=== PATIENT | female | born 1965 | race Caucasian/White ===

== ENCOUNTER → 2022-01-10 08:19 | Outpatient (BNVA) | payer OTHER, SELFPAY | PROVIDERS: PCP Internal Medicine; Visit Provider Surgery | DX: E66.01 Morbid (severe) obesity due to excess calories (principal); J45.909 Unspecified asthma, uncomplicated; I10 Essential (primary) hypertension | CPT/HCPCS: 99202 ==

== ENCOUNTER → 2022-01-29 15:00 | Outpatient (BNVA) | payer OTHER, SELFPAY | PROVIDERS: PCP Internal Medicine; Visit Provider Counselor Mental Health | DX: F33.0 Major depressive disorder, recurrent, mild (principal); E66.01 Morbid (severe) obesity due to excess calories | CPT/HCPCS: 90791 ==

== ENCOUNTER → 2022-02-11 08:12 | Outpatient (BNVA) | payer OTHER, SELFPAY | PROVIDERS: PCP Internal Medicine; Visit Provider Dietitian, Registered | DX: Z13.89 Encounter for screening for other disorder (principal) ==

== ENCOUNTER → 2022-02-12 08:10 | Outpatient (BNVA) | payer OTHER, SELFPAY | PROVIDERS: PCP Internal Medicine; Visit Provider Dietitian, Registered | DX: E66.01 Morbid (severe) obesity due to excess calories (principal); Z68.43 Body mass index [BMI] 50.0-59.9, adult | CPT/HCPCS: 97802 ==

== ENCOUNTER 2022-02-13 08:37 | Outpatient (REF) | payer OTHER, SELFPAY ==
--- NOTE | ~2022-02-13 | XR_ITS ---
EXAMINATION: XR CHEST CLINICAL INFORMATION: Morbid obesity COMPARISON: None TECHNIQUE: 2 views of the chest were obtained. FINDINGS: Cardiac silhouette is normal in size. The lungs are well aerated. There is no lobar consolidation. No pleural effusion or pneumothorax. Mild to moderate degenerative changes of the spine. XR/XR chest 2V IMPRESSION: No acute pulmonary pathology.
--- NOTE | 2022-02-13 08:55 | ECG_ITS ---
Test Reason : e66.01 Blood Pressure : / mmHG Vent. Rate : 068 BPM Atrial Rate : 068 BPM P-R Int : 144 ms QRS Dur : 088 ms QT Int : 376 ms P-R-T Axes : 056 035 034 degrees QTc Int : 399 ms Sinus rhythm with occasional Premature ventricular complexes Otherwise normal ECG No previous ECGs available Referred By: Tone Cancino Electronically Signed By:TIAGO PRATER MD
[2022-02-13 09:10] LABS: MANUAL DIFF FLAG NO
[2022-02-13 09:56] LABS: Basophils Percent Auto 0.2 % (0-2); Eosinophils Absolute Auto 0.1 X10*3/uL (0.0-0.4); Eosinophils Percent Auto 1.4 % (0-4); Hematocrit 45.4 % (37.0-47.0); Hemoglobin 14.7 g/dl (12.0-16.0); Imm Gran Abs Auto 0.01 X10*3/uL (0.00-0.03); Imm Gran Pct Auto 0.2 % (0.0-0.4); Mean Corpuscular HGB Conc 32.4 g/dl (31.0-35.0); Mean Corpuscular Hemoglobin 27.7 pg (27.0-33.0); Mean Corpuscular Volume 85.7 fL (80.0-98.0); Mean Platelet Volume 10.7 fL (9.4-12.3); Monocytes Absolute Auto 0.4 X10*3/uL (0.1-1.2); Monocytes Percent Auto 7.3 % (2-11); Neutrophils Absolute Auto 3.2 x10*3/uL (2.0-8.3); Neutrophils Percent Auto 55.9 % (45-73); Platelet Count 266 X10*3/uL (160-400); Red Cell Distribution Width 14.6 % (11.0-16.0); White Blood Count 5.7 X10*3/uL (4.8-10.8)
[2022-02-13 10:05] LABS: Estimated Average Glucose 108 mg/dL; Hemoglobin A1c % 5.4 %
[2022-02-13 10:28] LABS: Alanine Aminotransferase 22 U/L (0-31); Albumin Level 4.2 g/dL (3.5-5.0); Alkaline Phosphatase 115 U/L (39-117); Anion Gap 13 (12-20); Aspartate Amino Transferase 17 U/L (5-31); Bilirubin Total 0.4 mg/dL (0.0-1.0); Blood Urea Nitrogen 16 mg/dL (9-16); C Reactive Protein 1.72 mg/dL (< or = 0.50); Calcium 9.9 mg/dL (8.4-10.2); Carbon Dioxide 25 mmol/L (22-29); Chloride 105 mmol/L (96-108); Cholesterol 256 mg/dL; Estimated Glomerular Filt Rate > 60; Glucose Random 93 mg/dL (60-115); HDL Cholesterol 65 mg/dL; Iron 79 mcg/dL (30-160); LDL Cholesterol Calculated 174 mg/dl; Percent Iron Saturation 19 % (15-50); Potassium 4.6 mmol/L (3.3-5.1); Sodium 138 mmol/L (135-145); Total Iron Binding Capacity 406 mcg/dL (228-428); Total Protein 7.8 g/dL (6.5-8.0); Triglycerides 89 mg/dL; Unsaturated Iron Binding 327 ug/dL
[2022-02-13 10:36] LABS: Ferritin 165 ng/mL (10-250); TSH reflex Free T4 1.21 uIU/mL (0.32-4.0); Vitamin D 25-OH Total 46.8 ng/mL (>30)
[2022-02-13 11:07] LABS: Folate 19.1 ng/mL (> or = 4.0); Vitamin B12 763 pg/mL (200-900)
[2022-02-13 11:13] LABS: Insulin 13 uU/mL (2-29)
[2022-02-14 13:41] LABS: Calcium (PTHI) 9.9 mg/dL (8.6-10.4); PTHI 95 pg/mL (16-77)
[2022-02-15 13:54] LABS: H Pylori Breath Test Negative (Negative)
[2022-02-17 19:56] LABS: Zinc 65 mcg/dL (60-130)
[2022-02-19 13:00] LABS: Vitamin A 49 mcg/dL (38-98)
[2022-02-19 14:35] LABS: Vitamin B1 16 nmol/L (8-30)
== END 2022-02-13 08:38 | disposition home or self-care (01) ==
LOC: HO.LAB 08:37
PROVIDERS: PCP Internal Medicine; Visit Provider Surgery
DX: Z01.812 Encounter for preprocedural laboratory examination (principal); E66.01 Morbid (severe) obesity due to excess calories; I10 Essential (primary) hypertension; I49.3 Ventricular premature depolarization; J45.909 Unspecified asthma, uncomplicated
CPT/HCPCS: 36415; 71046; 80053; 80061; 82306; 82607; 82728; 82746; 83013; 83036; 83525; 83540; 83970; 84425; 84443; 84590; 84630; 85025; 86140; 93005; 99211

== ENCOUNTER → 2022-03-07 16:00 | Outpatient (BNVA) | payer OTHER, SELFPAY | PROVIDERS: PCP Internal Medicine; Visit Provider Physician Assistant | DX: E66.01 Morbid (severe) obesity due to excess calories (principal) | CPT/HCPCS: Q3014 ==

== ENCOUNTER → 2022-03-17 13:43 | Outpatient (BNVA) | payer OTHER, SELFPAY | PROVIDERS: PCP Internal Medicine; Referring Provider Surgery; Visit Provider Dietitian, Registered | DX: E66.01 Morbid (severe) obesity due to excess calories (principal); Z68.43 Body mass index [BMI] 50.0-59.9, adult | CPT/HCPCS: 97803 ==

== ENCOUNTER → 2022-06-04 14:19 | Outpatient (BNVA) | payer OTHER, SELFPAY | PROVIDERS: Visit Provider Physician Assistant | DX: E66.01 Morbid (severe) obesity due to excess calories (principal); Z71.3 Dietary counseling and surveillance; Z79.899 Other long term (current) drug therapy; Z68.43 Body mass index [BMI] 50.0-59.9, adult | CPT/HCPCS: 99212 ==

== ENCOUNTER → 2022-06-24 15:53 | Outpatient (BNVA) | payer OTHER, SELFPAY | PROVIDERS: Visit Provider Dietitian, Registered | DX: E66.01 Morbid (severe) obesity due to excess calories (principal); Z68.43 Body mass index [BMI] 50.0-59.9, adult; Z71.3 Dietary counseling and surveillance | CPT/HCPCS: 97803 ==

== ENCOUNTER → 2022-06-25 15:32 | Outpatient (BNVA) | payer OTHER, SELFPAY | PROVIDERS: Visit Provider Physician Assistant | DX: E66.01 Morbid (severe) obesity due to excess calories (principal); M79.7 Fibromyalgia; Z68.43 Body mass index [BMI] 50.0-59.9, adult | CPT/HCPCS: Q3014 ==

== ENCOUNTER 2022-07-07 08:49 | Outpatient (REF) | payer OTHER, SELFPAY ==
--- NOTE | ~2022-07-07 | FL_ITS ---
PROCEDURE: XR FLUOROSCOPY UPPER GI WITH AIR CLINICAL INFORMATION: Morbid to severe obesity due to excess calories. COMPARISON: None TECHNIQUE: Routine upper GI air-contrast study was performed. FINDINGS: Following oral administration of thick barium and effervescent granules in upright view there is normal propagation of bolus from the oral cavity through the pharynx, esophagus into stomach without any evidence of obstruction, narrowing or stricture. The course, caliber and peristalsis of the stomach and the duodenum is normal. The mucosal pattern of the stomach and duodenum is normal. FLUOROSCOPY TIME: 1.5 minutes DOSE AREA PRODUCT: 43.105 uGy-m2 (microgray-meter squared) FL/FL upper GI w air IMPRESSION: Unremarkable upper GI exam.
--- NOTE | ~2022-07-07 | US_ITS ---
EXAMINATION: US COMPLETE ABDOMEN WITH LIVER ELASTOGRAPHY CLINICAL INFORMATION: Rqhmop-[id number] obesity due to excess calories. COMPARISON: None. TECHNIQUE: Real-time imaging of the abdominal viscera. Noninvasive ultrasound liver fibrosis assessment is performed using Mikie ElastPQ point quantification shear wave elastography (2D-SWE) with a C5-2 MHz transducer. Multiple elastography samples are obtained. FINDINGS: PANCREAS: Normal. The visualized pancreatic head and body are normal in appearance. The remainder of the pancreas is obscured from visualization by the overlying bowel gas. ABDOMINAL AORTA: The proximal and distal aortic segments are normal in caliber. The mid abdominal segment is not visualized. INFERIOR VENA CAVA: Visualized portions are normal. LIVER: The liver demonstrates normal size, contour and minimal increased echogenicity. No focal lesion or intrahepatic biliary duct dilatation. The right lobe measures 14.3 cm in length. The left lobe measures 11.0 cm in length. Portal flow is hepatopedal. The middle portal vein appears slightly prominent but patent Shear wave liver elastography median stiffness is 2.07 m/s (reference: normal median stiffness is 1.3 m/s or less). IQR/median stiffness to assess sampling precision is 0.29 (reference: good quality data set is IQR/median stiffness of 0.15 or less). GALLBLADDER: Gallbladder wall thickness is 0.4 cm The gallbladder is physiologically distended without evidence of stones, sludge, polyps or pericholecystic fluid. COMMON BILE DUCT: Normal in caliber measuring 0.4 cm in diameter. RIGHT KIDNEY: Normal. No hydronephrosis. No renal calculi or focal parenchymal lesions. The kidney measures 12.3 cm in maximum dimension. LEFT KIDNEY: Normal. No hydronephrosis. No renal calculi or focal parenchymal lesions. The kidney measures 11.5 cm in maximum dimension. SPLEEN: Normal. The spleen measures 9.3 cm in maximum dimension. FREE FLUID: None. US/US abdomen comp w elastography IMPRESSION: 1. Mild hepatic steatosis without focal lesion. 2. Mild gallbladder wall thickening measuring 0.4 cm but no echogenic stones. 3. Liver elastography: Median liver stiffness measures 2.07 m/s corresponding to cACLD (ruled in). REFERENCE: Society of Radiologists in Ultrasound Liver Stiffness Thresholds (2020): LIVER STIFFNESS THRESHOLDS: *Liver Stiffness equal or less than 1.3 m/s: High probability of being normal. *Liver Stiffness less than 1.7 m/s: In the absence of other known clinical signs, rules out compensated advanced chronic liver disease. *Liver Stiffness 1.7-2.1 m/s: Suggestive of compensated advanced chronic liver disease but need further test for confirmation. *Liver Stiffness over 2.1 m/s: Rules in compensated advanced chronic liver disease. *Liver Stiffness over 2.4 m/s: Suggestive of clinically significant portal hypertension. QUALITY OF DATA SET: *IQR/Median value equal or less than 0.15 implies a quality data set. *IQR/Median value over 0.15 implies a poor quality data set. SIGNIFICANT CHANGE FROM PRIOR EXAM: Significant change if liver stiffness measurement is 10% or greater from prior exam. OTHER CONSIDERATIONS: The stage of liver fibrosis may be overestimated in the setting of acute hepatitis, liver inflammation, elevated liver function tests, hepatic vascular congestion, obstructive cholestasis, non-fasting state, and infiltrative diseases such as amyloidosis and lymphoma. In some patients with NAFLD, the liver stiffness thresholds for compensated advanced chronic liver disease may be lower. In causes other than viral hepatitis and NAFLD, liver stiffness thresholds are not well established.
== END 2022-07-07 08:50 | disposition home or self-care (01) ==
LOC: HO.US 08:49
PROVIDERS: Visit Provider Physician Assistant
DX: E66.01 Morbid (severe) obesity due to excess calories (principal); J45.909 Unspecified asthma, uncomplicated; I10 Essential (primary) hypertension
CPT/HCPCS: 74246; 76705; 76981

== ENCOUNTER → 2022-07-17 15:00 | Outpatient (BNVA) | payer OTHER, SELFPAY | PROVIDERS: Visit Provider Physician Assistant | DX: E66.01 Morbid (severe) obesity due to excess calories (principal); M79.7 Fibromyalgia | CPT/HCPCS: Q3014 ==

== ENCOUNTER → 2022-07-30 14:41 | Outpatient (BNVA) | payer OTHER, SELFPAY | PROVIDERS: Visit Provider Dietitian, Registered | DX: E66.01 Morbid (severe) obesity due to excess calories (principal); Z71.3 Dietary counseling and surveillance | CPT/HCPCS: 97803 ==

== ENCOUNTER → 2022-08-06 09:30 | Outpatient (BNVA) | payer OTHER, SELFPAY | PROVIDERS: Visit Provider Physician Assistant | DX: E66.01 Morbid (severe) obesity due to excess calories (principal); F41.9 Anxiety disorder, unspecified; M79.7 Fibromyalgia; Z68.42 Body mass index [BMI] 45.0-49.9, adult | CPT/HCPCS: Q3014 ==

== ENCOUNTER → 2022-08-27 14:30 | Outpatient (BNVA) | payer OTHER, SELFPAY | PROVIDERS: Visit Provider Physician Assistant | DX: E66.01 Morbid (severe) obesity due to excess calories (principal); Z68.42 Body mass index [BMI] 45.0-49.9, adult; F41.9 Anxiety disorder, unspecified; F32.A Depression, unspecified; M79.7 Fibromyalgia; I10 Essential (primary) hypertension; J45.909 Unspecified asthma, uncomplicated | CPT/HCPCS: Q3014 ==

== ENCOUNTER → 2022-09-17 16:30 | Outpatient (BNVA) | payer OTHER, SELFPAY | PROVIDERS: Visit Provider Physician Assistant | DX: E66.01 Morbid (severe) obesity due to excess calories (principal); M79.7 Fibromyalgia; J45.909 Unspecified asthma, uncomplicated; I10 Essential (primary) hypertension; Z68.42 Body mass index [BMI] 45.0-49.9, adult | CPT/HCPCS: Q3014 ==

== ENCOUNTER → 2022-09-22 08:16 | Outpatient (BNVA) | payer OTHER, SELFPAY | PROVIDERS: Visit Provider Surgery | DX: E66.01 Morbid (severe) obesity due to excess calories (principal); Z68.42 Body mass index [BMI] 45.0-49.9, adult | CPT/HCPCS: Q3014 ==

== ENCOUNTER 2022-10-09 06:21 | Inpatient (IN) | payer OTHER, SELFPAY ==
[2022-10-02 15:10] VITALS: BMI 47.9
[2022-10-03 14:13] LABS: MANUAL DIFF FLAG NO
[2022-10-03 14:24] LABS: Basophils Percent Auto 0.6 % (0-2); Eosinophils Absolute Auto 0.1 X10*3/uL (0.0-0.4); Eosinophils Percent Auto 1.7 % (0-4); Hematocrit 44.5 % (37.0-47.0); Hemoglobin 14.5 g/dl (12.0-16.0); Imm Gran Abs Auto 0.01 X10*3/uL (0.00-0.03); Imm Gran Pct Auto 0.2 % (0.0-0.4); Lymphocytes Absolute Auto 1.4 X10*3/uL (1.2-4.9); Lymphocytes Percent Auto 30.5 % (20-40); Mean Corpuscular HGB Conc 32.6 g/dl (31.0-35.0); Mean Corpuscular Hemoglobin 28.2 pg (27.0-33.0); Mean Corpuscular Volume 86.6 fL (80.0-98.0); Monocytes Absolute Auto 0.4 X10*3/uL (0.1-1.2); Monocytes Percent Auto 7.8 % (2-11); Neutrophils Absolute Auto 2.8 x10*3/uL (2.0-8.3); Neutrophils Percent Auto 59.2 % (45-73); Platelet Count 236 X10*3/uL (160-400); Red Blood Count 5.14 X10*6/uL (4.20-5.50); Red Cell Distribution Width 13.7 % (11.0-16.0); White Blood Count 4.7 X10*3/uL (4.8-10.8)
[2022-10-03 14:30] LABS: Prothrombin Time 11.1 SEC (10.0-13.1)
[2022-10-03 14:33] LABS: Partial Thromboplastin Time 29.8 SEC (26.0-36.4)
[2022-10-03 14:52] LABS: Estimated Average Glucose 97 mg/dL
[2022-10-03 14:54] LABS: Alanine Aminotransferase 17 U/L (0-31); Alkaline Phosphatase 103 U/L (39-117); Anion Gap 11 (12-20); Aspartate Amino Transferase 16 U/L (5-31); Bilirubin Total 0.6 mg/dL (0.0-1.0); Blood Urea Nitrogen 14 mg/dL (9-16); C Reactive Protein 1.08 mg/dL (< or = 0.50); Calcium 9.5 mg/dL (8.4-10.2); Carbon Dioxide 30 mmol/L (22-29); Chloride 105 mmol/L (96-108); Cholesterol 238 mg/dL; Creatinine Clr Calc Pharmacy 123.3; Estimated Glomerular Filt Rate > 60; Glucose Random 88 mg/dL (60-115); HDL Cholesterol 54 mg/dL; LDL Cholesterol Calculated 168 mg/dl; Potassium 4.7 mmol/L (3.3-5.1); Sodium 141 mmol/L (135-145); Total Protein 6.9 g/dL (6.5-8.0); Triglycerides 84 mg/dL
[2022-10-03 15:12] LABS: Insulin 8 uU/mL (2-29); TSH reflex Free T4 1.17 uIU/mL (0.32-4.0)
--- NOTE | 2022-10-03 23:51 | MHC.SHP ---
Pre-Procedural Eval Section A Date of Service: 10/03/22 The patient is an INPATIENT: Yes The History & Physical has been completed within 30 days and I have reviewed it.: Yes Section B Chief Complaint: obesity Relevant Family History (Specify if Yes): No Relevant Social History: None Present Medications: None Medical History: No relevant PMH History of Previous Operations: No relevant previous surgery Allergies: Allergies Allergy/AdvReac Type Severity Reaction Status Date / Time No Known Allergies Allergy Verified 09/22/22 11:54 Review of Systems Sugical H&P ROS: Negative: Constitution, Cardiovascular, Respiratory, Neurological, Psychiatric, Hem-Onc, Allergic/Immunologic, Gastrointestinal, Genitourinary, Musculoskeletal, Integumentary, Endocrine and Eyes/Ears/Nose/Throat Exam Surgical H&P Exam: Normal: HEENT, Normal: Heart, Normal: Lungs, Normal: Extremities, Normal: Abdomen, Normal: Skin and Normal: Neurological Plan Diagnosis/Plan: Unchanged I have reviewed the history and physical and performed a pertinent physical examination on my patient. No changes have occurred unless specified. Time Spent With Patient Time: Total time managing care of this patient today ____ minutes.
--- NOTE | 2022-10-08 09:50 | HO.ANESPROP2 ---
Documented by User: Elsy Booth NP 10/08/22 09:55 HPI - Anesthesia Eval Consult details Narrative: 57yo F for Gastrectomy Sleeve,EGD,poss diaphragmatic hernia,poss ventral hernia,poss open, PMFSH Active Problems Active Problems: All Active Problems (Updated 10/02/22 @ 15:10 by Angela Del Valle RN) Major depressive disorder, recurrent, mild (Acute) Fibromyalgia (Acute) DJD (degenerative joint disease) (Acute) Hypertension (Acute) Anxiety (Acute) Depression (Acute) Asthma (Acute) Morbid obesity (Acute) Past Medical History Medical History Anxiety Arthritis Asthma Depression DJD (degenerative joint disease) Hypertension Morbid obesity Family History Family History Mother No problems noted. Father No problems noted. Sister No problems noted. Sister No problems noted. Sister No problems noted. Sister No problems noted. Sister Asthma Son No problems noted. Son No problems noted. Son No problems noted. Son No problems noted. Surgical History Surgical History Hx of tubal ligation Social History Social History Housing Other:: mobile home Are you a primary career services coordinator to a significant other at home: No Do you presently have visiting nurse or other home services: Yes ([employer]) Alcohol intake: never Patient Tobacco Use Status: Never used Tobacco Use of substances other than those prescribed or required for medical reasons: No Have you been hit, kicked, punched, or otherwise hurt by someone within the past year? If so, by whom?: No Are you DNR?: No Advance Directives: No Advance Directives Information Provided: Yes (brochure mailed) Advance Directives on File: No Recently lost weight without trying: No Eating poorly because of decreased appetite: No Nutrition Risks: No Nutritional Risk Patient : No FDLMP: N/A Poor oral hygiene: No (2 broken teeth upper) Meds Allergies Allergy/AdvReac Type Severity Reaction Status Date / Time No Known Allergies Allergy Verified 10/09/22 06:43 Home Medications Medication Instructions Recorded Confirmed Last Taken Type albuterol sulfate 2.5 mg/3 mL 2.5 mg inhalation Q4H PRN Wheezing 01/10/22 10/09/22 10/02/22 History (0.083 %) solution for nebulization albuterol sulfate 90 mcg/actuation 2 puff inhalation Q4H PRN Wheezing 01/10/22 10/09/22 10/07/22 History aerosol inhaler amlodipine 10 mg tablet 10 mg PO DAILY 01/10/22 10/09/22 10/09/22 04:30 History losartan 25 mg tablet 25 mg PO DAILY 06/25/22 10/09/22 10/08/22 History duloxetine 30 mg capsule,delayed 30 mg PO TID 09/17/22 10/09/22 10/06/22 History release tramadol 50 mg tablet 50 mg PO DAILY PRN Pain 09/17/22 10/09/22 10/02/22 History pregabalin 75 mg capsule 75 mg PO BID 09/22/22 10/09/22 10/06/22 History Exam Exam Date and Time: October 08, 2022 0950 Height,Weight and Vital Signs: Height 5 ft 8 in Weight 142.882 kg Pertinent Lab Results Pertinent Lab Results: Laboratory Tests 10/03/22 10/03/22 10/03/22 14:00 14:11 14:11 WBC 4.7 L RBC 5.14 Hgb 14.5 Hct 44.5 MCV 86.6 MCH 28.2 MCHC 32.6 RDW 13.7 Plt Count 236 MPV 11.0 Immature Gran % (Auto) 0.2 Neut % (Auto) 59.2 Lymph % (Auto) 30.5 Moca % (Auto) 7.8 Eos % (Auto) 1.7 Baso % (Auto) 0.6 Lymph # (Auto) 1.4 Moca # (Auto) 0.4 Eos # (Auto) 0.1 Baso # (Auto) 0.0 Abs Immat Gran (auto) 0.01 Absolute Neuts (auto) 2.8 Absolute Nucleated RBC 0.000 Nucleated RBC % (auto) 0.0 PT 11.1 INR 1.0 APTT 29.8 Sodium Potassium Chloride Carbon Dioxide Anion Gap BUN Creatinine Estim Creat Clear Calc Estimated GFR Random Glucose Estimat Average Glucose Hemoglobin A1c % Insulin Level Calcium Total Bilirubin AST ALT Alkaline Phosphatase C-Reactive Protein Total Protein Albumin Triglycerides Cholesterol LDL Cholesterol, Calc HDL Cholesterol TSH Blood Type O Positive Antibody Screen NEGATIVE 10/03/22 10/03/22 14:11 14:11 WBC RBC Hgb Hct MCV MCH MCHC RDW Plt Count MPV Immature Gran % (Auto) Neut % (Auto) Lymph % (Auto) Moca % (Auto) Eos % (Auto) Baso % (Auto) Lymph # (Auto) Moca # (Auto) Eos # (Auto) Baso # (Auto) Abs Immat Gran (auto) Absolute Neuts (auto) Absolute Nucleated RBC Nucleated RBC % (auto) PT INR APTT Sodium 141 Potassium 4.7 Chloride 105 Carbon Dioxide 30 H Anion Gap 11 L BUN 14 Creatinine 0.75 Estim Creat Clear Calc 123.3 Estimated GFR > 60 Random Glucose 88 Estimat Average Glucose 97 Hemoglobin A1c % 5.0 Insulin Level 8 Calcium 9.5 Total Bilirubin 0.6 AST 16 ALT 17 Alkaline Phosphatase 103 C-Reactive Protein 1.08 H Total Protein 6.9 Albumin 4.0 Triglycerides 84 Cholesterol 238 LDL Cholesterol, Calc 168 HDL Cholesterol 54 TSH 1.17 Blood Type Antibody Screen Narrative Narrative: EKG 02/2022 Vent. Rate : 068 BPM ? ? Atrial Rate : 068 BPM ?? P-R Int : 144 ms? QRS Dur : 088 ms ? ? QT Int : 376 ms ? ? ? P-R-T Axes : 056 035 034 degrees ?? QTc Int : 399 ms ? Sinus rhythm with occasional Premature ventricular complexes Otherwise normal ECG No previous ECGs available Assessment and Plan Assessment Anesthesia Assessment: Chart Reviewed Documented by User: Susan Levine MD 10/09/22 07:22 [facility] Past Medical History Medical History Anxiety Arthritis Asthma Depression DJD (degenerative joint disease) Hypertension Morbid obesity Functional capacity: independent ambulation Patient : No Family History Family History Mother No problems noted. Father No problems noted. Sister No problems noted. Sister No problems noted. Sister No problems noted. Sister No problems noted. Sister Asthma Son No problems noted. Son No problems noted. Son No problems noted. Son No problems noted. Family history of problems with anesthesia: No Surgical History Surgical History Hx of tubal ligation History of Problems with Anesthesia: No Social History Social History Housing Other:: mobile home Are you a primary career services coordinator to a significant other at home: No Do you presently have visiting nurse or other home services: Yes ([employer]) Alcohol intake: never Patient Tobacco Use Status: Never used Tobacco Use of substances other than those prescribed or required for medical reasons: No Have you been hit, kicked, punched, or otherwise hurt by someone within the past year? If so, by whom?: No Are you DNR?: No Advance Directives: No Advance Directives Information Provided: Yes (brochure mailed) Advance Directives on File: No Recently lost weight without trying: No Eating poorly because of decreased appetite: No Nutrition Risks: No Nutritional Risk Patient : No FDLMP: N/A Poor oral hygiene: No (2 broken teeth upper) Meds Allergies Allergy/AdvReac Type Severity Reaction Status Date / Time No Known Allergies Allergy Verified 10/09/22 06:43 Home Medications Medication Instructions Recorded Confirmed Last Taken Type albuterol sulfate 2.5 mg/3 mL 2.5 mg inhalation Q4H PRN Wheezing 01/10/22 10/09/22 10/02/22 History (0.083 %) solution for nebulization albuterol sulfate 90 mcg/actuation 2 puff inhalation Q4H PRN Wheezing 01/10/22 10/09/22 10/07/22 History aerosol inhaler amlodipine 10 mg tablet 10 mg PO DAILY 01/10/22 10/09/22 10/09/22 04:30 History losartan 25 mg tablet 25 mg PO DAILY 06/25/22 10/09/22 10/08/22 History duloxetine 30 mg capsule,delayed 30 mg PO TID 09/17/22 10/09/2210/06/23 History release tramadol 50 mg tablet 50 mg PO DAILY PRN Pain 09/17/22 10/09/22 10/02/22 History pregabalin 75 mg capsule 75 mg PO BID 09/22/22 10/09/22 10/06/22 History Exam Airway Mallampati Class: II TM Dist: >3cm Neck ROM: Full Heart: RRR Lungs: CTA Assessment and Plan Final Anesthetic Review Family History of Problems with Anesthesia: No History of Problems with Anesthesia: No ASA Class: III Final Preanesthetic Review: No Changes in Pt Med Stat, Meds/Allgs Chart Reviewed, Consent Obtained/Reviewed and Anes Risks/Benef Reviewed Patient Risk: Intermediate Procedure Risk: Intermediate Anesthetic Plan Anesthetic Plan: GA Disposition: Standard PACU
[2022-10-08 15:22] LABS: COVID-19 Test Negative (Negative); IDNOW Serial# 16C4AD1C
[2022-10-09] VITALS (17 sets, daily range): BP systolic 130–169; BP diastolic 66–88; PULSE 69–91; RESP 16–21; TEMP 36.3–37.3; O2SAT 95–100
--- OUTSIDE RECORDS SUMMARY | 2022-10-09 06:23 | XMS_ITS | Continuity of Care Document ---
:1965 Author Organization [facility] Address [address] [place] [id number]- Care Team Providers Name Role Phone Ana Funk MD Primary Care Physician Encounter [facility] [place] Date(s): 03/26/22 - 06/26/22 [facility] [address] [place] [id number] [[email or web address]] Attending Physician: Hebert Guzman DO Admitting Physician: Hebert Guzman DO Referring Physician: Ana Funk MD Allergies, Adverse Reactions, Alerts No Known Allergies Immunizations Given and Recorded Vaccine Date Status Refusal Reason SARS-CoV-2 mRNA ([id number]) vax 06/04/22 Given influenza virus vaccine, inactivated 11/21/21 Given influenza virus vaccine, inactivated 06/30/19 Given influenza virus vaccine, inactivated 11/12/18 Given influenza virus vaccine, inactivated1 07/24/17 Given influenza virus vaccine, inactivated2 07/24/16 Given influenza virus vaccine, inactivated 10/12/15 Recorded influenza virus vaccine, inactivated 10/16/09 Recorded tetanus/diphtheria/pertussis, acel(Tdap) 11/08/13 Recorde d Hepatitis B Vaccine (old term) 08/11/07 Given Hepatitis B Vaccine (old term) 12/16/06 Given Hepatitis B Vaccine (old term) 11/11/06 Given Hepatitis A Vaccine (oldterm) 08/11/07 Given Hepatitis A Vaccine (oldterm) 11/11/06 Given 1Result Comment: [07/24/2017] [facility]# [id number] Comment: [07/24/2016] [facility] Medications albuterol 0.083% inhalation solution See Instructions, USE 1 VIAL VIA NEBULIZER EVERY 4-6 HOURS NEEDED FOR WHEEZING, # 100 each, 6 Refills, Maintenance, 11/21/21 10:47:00 EST, [facility] #[id number], 170, cm, 11/21/21 10:08:00 EST, Height Start Date: 11/21/21 Status: OrderedamLODIPine 10 mg oral tablet 1 tablet, By Mouth, Daily, # 30 tablet, 2 Refills, Maintenance, 06/06/22 7:21:00 EDT, [facility] #[id number], 170, cm, 06/04/22 9:54:00 EDT, Height Start Date: 06/06/22 Status: Orderedduloxetine 30 mg oral enteric coated capsule 3 capsule = 90 mg, By Mouth, Daily, # 90 capsule, 3 Refills, Maintenance, 02/17/22 9:23:00 EDT, EC Capsule, [facility] #[id number], Partial fill upon patient request if the prescription is for a schedule II opioid drug., 170, cm, 02/17/22 9:22:00... Start Date: 02/17/22 Stop Date: 06/17/22 Status: Orderedlosartan 25 mg oral tablet 25 mg, 1, tablet, By Mouth, Daily, # 30 tablet, Refills 4, Tot. Refills 4, Maintenance, 02/17/22 9:21:00 EDT, Route to Pharmacy Electronically, [facility] #[id number], Partial fill upon patient request if the prescription is for a schedule II opi... Start Date: 02/17/22 Stop Date: 07/17/22 Status: OrderedLyrica 75 mg oral capsule 1 capsule = 75 mg, By Mouth, 2 times a day, # 60 capsule, 5 Refills, Maintenance, 11/21/21 12:33:00 EST, Capsule, [facility] #[id number], 170, cm, 11/21/21 10:08:00 EST, Height Start Date: 11/21/21 Stop Date: 05/20/22 Status: OrderedNebulizer/Compressor See Instructions, # 1 each, Refills 0, Tot. Refills 0, Maintenance, Nebulizer supplies, 12/27/18 17:57:00 EDT, Compound Start Date: 12/27/18 Status: OrderedProAir HFA 90 mcg/inh inhalation aerosol with adapter 2, puffs, Inhalation, Every 6 hours, NO ADDTIONAL REFILLS UNTIL SEEN BY PCP- PLEASE SCHEDULE APPT., # 1 each, Refills 6, Tot. Refills 6, Maintenance, 11/21/21 10:47:00 EST, Inhaler, Route to Pharmacy Electronically, [id number]... Start Date: 11/21/21 Stop Date: 06/19/22 Status: Ordered Problem List Condition Effective Dates Status Health Status Informant Asthma(Confirmed) Active Bipolar disorder(Confirmed) Active Obesity, Class III, BMI 40-49.9 Active (morbid obesity)(Confirmed) Chronic pain syndrome(Confirmed) Active Fibromyalgia(Confirmed) 05/22/08 Active BETO - Generalized anxiety Active disorder(Confirmed) Hypertension(Confirmed) Active Hyperthyroidism(Confirmed) Active Insomnia(Confirmed) Active Knee pain, bilateral(Confirmed) Active Low back pain(Confirmed) Active DJD (degenerative joint disease), Active lumbosacral(Confirmed) Mild intermittent asthma(Confirmed) Active Nocturnal Sleep-Related Eating Active Disorder(Confirmed) SI (sacroiliac) joint Active dysfunction(Confirmed) Severe obesity(Confirmed) Active Subluxation of peroneal tendon of left Active foot(Confirmed) Vitamin d deficiency(Confirmed) Active Social History Social History Type Response Smoking Status Never smoker entered on: 12/25/15 Sex Care Team PersonnelName: Ana Funk MD Address: [address] [place] [id number] [[email or web address]]
--- OUTSIDE RECORDS SUMMARY | 2022-10-09 06:23 | XMS_ITS | Continuity of Care Document ---
:1965 Author Organization [facility] Address [address] [place] [address]- Care Team Providers Name Role Phone Darvin Choi MD, Ana Primary Care Physician Encounter [facility] Date(s): 09/18/20 - 10/18/[address] [id number] Allergies, Adverse Reactions, Alerts Substance Reaction Severity Status NKA Active Immunizations Given and Recorded Vaccine Date Status Refusal Reason influenza virus vaccine, inactivated 06/30/19 Given influenza virus vaccine, inactivated 11/12/18 Given influenza virus vaccine, inactivated1 07/24/17 Given influenza virus vaccine, inactivated2 07/24/16 Given influenza virus vaccine, inactivated 10/12/15 Recorded tetanus/diphtheria/pertussis, acel(Tdap) 11/08/13 Recorde d Hepatitis B Vaccine (old term) 08/11/07 Given Hepatitis B Vaccine (old term) 12/16/06 Given Hepatitis B Vaccine (old term) 11/11/06 Given Hepatitis A Vaccine (oldterm) 08/11/07 Given Hepatitis A Vaccine (oldterm) 11/11/06 Given 1Result Comment: [07/24/2017] [facility]# [id number] Comment: [07/24/2016] [facility] Medications etodolac 500 mg oral tablet 1 tablet = 500 mg, By Mouth, 2 times a day, # 180 tablet, 0 Refills, Maintenance, 07/26/19 12:24:45 EDT, Tablet Start Date: 07/26/19 Status: Ordered Problem List Condition Effective Dates Status Health Status Informant Asthma(Confirmed) Active Bipolar disorder(Confirmed) Active Chronic pain syndrome(Confirmed) Active Fibromyalgia(Confirmed) 05/22/08 Active BETO - Generalized anxiety Active disorder(Confirmed) Hypertension(Confirmed) Active Hyperthyroidism(Confirmed) Active Insomnia(Confirmed) Active Low back pain(Confirmed) Active Mild intermittent asthma(Confirmed) Active Morbid obesity(Confirmed) Active Nocturnal Sleep-Related Eating Active Disorder(Confirmed) Subluxation of peroneal tendon of left Active foot(Confirmed) Vitamin d deficiency(Confirmed) Active Social History Social History Type Response Smoking Status Never smoker entered on: 12/25/15 Sex
--- OUTSIDE RECORDS SUMMARY | 2022-10-09 06:23 | XMS_ITS | Continuity of Care Document ---
:1965 Author Organization [facility] Address [address] [place] [id number]- Care Team Providers Name Role Phone Ana Funk MD [id number] [address] [place] [id number] Attending Physician: Andrew Kaur MD Admitting Physician: Andrew Kaur MD Allergies, Adverse Reactions, Alerts No Known Allergies Immunizations Given and Recorded Vaccine Date Status Refusal Reason influenza virus vaccine, inactivated 11/21/21 Given influenza [...] Vaccine (oldterm) 11/11/06 Given 1Result Comment: [07/24/2017] [facility]# [id number] Comment: [07/24/2016] [facility] Problem List Condition Effective Dates Status Health [...]
--- OUTSIDE RECORDS SUMMARY | 2022-10-09 06:23 | XMS_ITS | Continuity of Care Document ---
:1965 Author Organization [facility] Address [address] [place] [address]- Care Team Providers Name Role Phone Darvin Choi MD, Ana Primary Care Physician Encounter [facility] Date(s): 03/19/21 - 07/24/21 [facility] [address], [place] [address] Attending Physician: Chichi PACE, Aura Rhodes Allergies, Adverse Reactions, Alerts Substance Reaction Severity [...] Vaccine (oldterm) 11/11/06 Given 1Result Comment: [07/24/2017] [facility]# [id number] Comment: [07/24/2016] [facility] Medications etodolac 500 mg oral tablet 1 tablet = 500 mg, By Mouth, 2 times a day, # 180 tablet, 0 Refills, Maintenance, 07/26/19 12:24:45 EDT, Tablet Start Date: 07/26/19 Status: OrderedProAir HFA 90 mcg/inh inhalation aerosol with adapter 2, puffs, Inhalation, Every 6 hours, NO ADDTIONAL REFILLS UNTIL SEEN BY PCP- PLEASE SCHEDULE APPT., # 1 each, Refills 0, Tot. Refills 0, Maintenance, 02/15/21 18:05:00 EDT, Inhaler, Route to Pharmacy Electronically, [id number]... Start Date: 02/15/21 Stop Date: 03/17/21 Status: Ordered Problem List Condition Effective Dates Status Health Status Informant Asthma(Confirmed) Active Bipolar disorder(Confirmed) Active Chronic pain syndrome(Confirmed) Active Fibromyalgia(Confirmed) 05/22/08 Active BETO - Generalized anxiety Active disorder(Confirmed) Hypertension(Confirmed) Active Hyperthyroidism(Confirmed) Active Insomnia(Confirmed) Active Knee pain, bilateral(Confirmed) Active Low back pain(Confirmed) Active Mild intermittent asthma(Confirmed) Active Morbid obesity(Confirmed) Active Nocturnal Sleep-Related Eating Active Disorder(Confirmed) Subluxation of peroneal tendon of left Active foot(Confirmed) Vitamin d deficiency(Confirmed) Active Social History Social History Type Response Smoking Status Never smoker entered on: 12/25/15 Sex
--- OUTSIDE RECORDS SUMMARY | 2022-10-09 06:23 | XMS_ITS | Continuity of Care Document ---
:1965 Author Organization [facility] Address [address] [place] [address]- Care Team Providers Name Role Phone Darvin Choi MD, Ana Primary Care Physician Encounter [facility] Date(s): 07/09/22 - 08/08/22 [facility] [address] [place], [place] [address] Attending Physician: Chris Khan Admitting Physician: AdmChris singh Referring Physician: AdmtrChris Allergies, Adverse Reactions, Alerts No Known Allergies Immunizations Given and Recorded Vaccine Date Status Refusal Reason SARS-CoV-2 mRNA (wznjush-ywyk-fneqq) vax 06/04/22 Given influenza virus vaccine, inactivated [...] Vaccine (oldterm) 11/11/06 Given 1Result Comment: [07/24/2017] [facility]# [id number] Comment: [07/24/2016] SE[facility]US Medications albuterol 0.083% inhalation solution See Instructions, USE 1 VIAL VIA NEBULIZER EVERY 4-6 HOURS NEEDED FOR WHEEZING, # 100 each, 6 Refills, Maintenance, 11/21/21 10:47:00 EST, [facility] #[id number], 170, cm, 11/21/21 10:08:00 EST, Height Start Date: 11/21/21 Status: OrderedamLODIPine 5 mg oral tablet 1 tablet, By Mouth, Daily, # 30 tablet, 0 Refills, Maintenance, 07/14/22 13:22:00 EDT, [facility] #[id number], 170, cm, 07/09/22 13:35:00 EDT, Height Start Date: 07/14/22 Status: Orderedduloxetine 30 mg oral enteric coated capsule 3 capsule = 90 mg, By Mouth, Daily, # 90 capsule, 3 Refills, Maintenance, 02/17/22 9:23:00 EDT, EC Capsule, [facility] #[id number], Partial fill upon patient request if the prescription is for a schedule II opioid drug., 170, cm, 02/17/22 9:22:00... Start Date: 02/17/22 Stop Date: 06/17/22 Status: Orderedlosartan 25 mg oral tablet 1 tablet, By Mouth, Daily, # 30 tablet, 5 Refills, Maintenance, 07/13/22 7:39:00 EDT, [facility] #[id number], 170, cm, 07/09/22 13:35:00 EDT, Height Start Date: 07/13/22 Status: OrderedLyrica 75 mg oral capsule 1 capsule = 75 mg, By Mouth, 2 times a day, NEEDS AN APPOINTMENT FOR FURTHER REFILLS, # 60 capsule, 0 Refills, Maintenance, 07/14/22 13:27:00 EDT, Capsule, [facility] #[id number], 170, cm, 07/09/22 13:35:00 EDT, Height Start Date: 07/14/22 Stop Date: 08/13/22 Status: OrderedNebulizer/Compressor See Instructions, # 1 each, [...] 10:47:00 EST, Inhaler, Route to Pharmacy Electronically, [id number]... Start Date: 11/21/21 Stop Date: 06/19/22 Status: Ordered Problem List Condition Confirmation Course Effective Dates Status Health I nformant Status Asthma Confirmed Active Bipolar disorder Confirmed Active Obesity, Class III, Confirmed Active BMI 40-49.9 (morbid obesity) Chronic pain syndrome Confirmed Active Fibromyalgia Confirmed 05/22/08 Active BETO - Generalized Confirmed Active anxiety disorder Hypertension Confirmed Active Hyperthyroidism Confirmed Active Insomnia Confirmed Active Knee pain, bilateral Confirmed Active Low back pain Confirmed Active DJD (degenerative Confirmed Active joint disease), lumbosacral Mild intermittent Confirmed Active asthma Nocturnal Confirmed Active 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
--- OUTSIDE RECORDS SUMMARY | 2022-10-09 06:23 | XMS_ITS | Continuity of Care Document ---
:1965 Author Organization [facility] Address [address] [place] [address]- Care Team Providers Name Role Phone Darvin Choi MD, Ana Primary Care Physician Encounter [facility] Date(s): 11/21/21 - 12/21/21 [facility] [address] [place], [place] [address] Attending Physician: Chris Khan Admitting Physician: Chris Khan Referring Physician: AdmtrChris Allergies, Adverse Reactions, Alerts [...] Vaccine (oldterm) 11/11/06 Given 1Result Comment: [07/24/2017] [facility]# [id number] Comment: [07/24/2016] [facility]US Problem List Condition Effective Dates Status Health Status Informant Asthma(Confirmed) Active Bipolar disorder(Confirmed) Active Obesity, Class III, BMI 40-49.9 Active (morbid obesity)(Confirmed) Chronic pain syndrome(Confirmed) Active Fibromyalgia(Confirmed) 05/22/08 Active BETO - Generalized anxiety Active disorder(Confirmed) Hypertension(Confirmed) Active Hyperthyroidism(Confirmed) Active Insomnia(Confirmed) Active Knee pain, bilateral(Confirmed) Active Low back pain(Confirmed) Active Mild intermittent asthma(Confirmed) Active Nocturnal Sleep-Related Eating Active Disorder(Confirmed) Severe obesity(Confirmed) Active Subluxation of peroneal tendon of left Active foot(Confirmed) Vitamin d deficiency(Confirmed) Active Social History Social History Type Response Smoking Status Never smoker entered on: 12/25/15 Sex
--- OUTSIDE RECORDS SUMMARY | 2022-10-09 06:23 | XMS_ITS | Continuity of Care Document ---
:1965 Author Organization [facility] Address [address] [facility], [address] [address]- Care Team Providers Name Role Phone Ana Funk MD Primary Care Physician Encounter 07/11/22 - 07/18/22 [facility] [address], [address] [address]- Attending Physician: Ana Cullen Admitting Physician: Ana Cullen Referring Physician: Ana Cullen Allergies, Adverse Reactions, Alerts No Known Allergies Immunizations Given and Recorded Vaccine Date Status Refusal Reason SARS-CoV-2 mRNA (vdizznj-mrbg-uzgrf) vax 06/04/22 Given influenza virus vaccine, inactivated [...] Vaccine (oldterm) 11/11/06 Given 1Result Comment: [07/24/2017] [facility]# [id number] Comment: [07/24/2016] [facility] Medications albuterol 0.083% inhalation solution See Instructions, USE 1 VIAL VIA NEBULIZER EVERY 4-6 HOURS NEEDED FOR WHEEZING, # 100 each, 6 Refills, Maintenance, 11/21/21 10:47:00 EST, [facility] #[id number], 170, cm, 11/21/21 10:08:00 EST, Height Start Date: 11/21/21 Status: OrderedamLODIPine 5 mg oral tablet 1 tablet, By Mouth, Daily, # 30 tablet, 0 Refills, Maintenance, 07/14/22 13:22:00 EDT, [facility] #[id number], 170, cm, 07/09/22 13:35:00 EDT, Height Start Date: 07/14/22 Status: Orderedduloxetine 30 mg oral enteric coated capsule 3 capsule = 90 mg, By Mouth, Daily, # 90 capsule, 3 Refills, Maintenance, 02/17/22 9:23:00 EDT, EC Capsule, [facility] #[id number], Partial fill upon patient request if the prescription is for a schedule II opioid drug., 170, cm, 02/17/22 9:22:00... Start Date: 02/17/22 Stop Date: 06/17/22 Status: Orderedlosartan 25 mg oral tablet 1 tablet, By Mouth, Daily, # 30 tablet, 5 Refills, Maintenance, 07/13/22 7:39:00 EDT, [facility] #[id number], 170, cm, 07/09/22 13:35:00 EDT, Height Start Date: 07/13/22 Status: OrderedLyrica 75 mg oral capsule 1 capsule = 75 mg, By Mouth, 2 times a day, NEEDS AN APPOINTMENT FOR FURTHER REFILLS, # 60 capsule, 0 Refills, Maintenance, 07/14/22 13:27:00 EDT, Capsule, [facility] #[id number], 170, cm, 07/09/22 13:35:00 EDT, Height Start [...] 10:47:00 EST, Inhaler, Route to Pharmacy Electronically, [id number]... Start Date: 11/21/21 Stop Date: 06/19/22 Status: [...] information PersonnelName: Ana Funk MD Address: Address: [address] [place] [address]
--- OUTSIDE RECORDS SUMMARY | 2022-10-09 06:23 | XMS_ITS | Continuity of Care Document ---
:1965 Author Organization [facility] Address [address] [place] [address]- Care Team Providers Name Role Phone Darvin Choi MD, Ana Primary Care Physician Encounter [facility] Date(s): 04/16/22 - 05/16/[address] [address] Allergies, Adverse Reactions, Alerts No Known Allergies [...] [07/24/2017] [facility]# [id number] Comment: [07/24/2016] SEQIRUS Problem List Condition Effective [...]
--- OUTSIDE RECORDS SUMMARY | 2022-10-09 06:23 | XMS_ITS | Continuity of Care Document ---
:1965 Author Organization [facility] Address [address] [place] [address]- Care Team Providers Name Role Phone Darvin Choi MD, Ana Primary Care Physician [phone] Encounter [facility] Date(s): 02/18/21 - 03/20/[address] [address] Attending Physician: Chris Khan Admitting Physician: Chris Khan Referring Physician: AdmChris singh Allergies, Adverse Reactions, Alerts Substance Reaction Severity [...] Vaccine (oldterm) 11/11/06 Given 1Result Comment: [07/24/2017] [facility]# [id number] Comment: [07/24/2016] [facility] Medications amLODIPine 5 mg oral tablet 5 mg, 1, tablet, By Mouth, Daily, MUST SCHEDULE APPT WITH PCP FOR ADDITIONAL MEDICATION, # 7 tablet,Refills 0, Tot. Refills 0, Maintenance, 02/15/21 18:05:00 EDT, [facility]ically[id number], 170, cm, 05/21/20 8:58:0... Start Date: 02/15/21 Stop Date: 02/22/21 Status: Orderedetodolac 500 mg oral tablet 1 tablet = [...] 18:05:00 EDT, Inhaler, Route to Pharmacy Electronically, [id number]... Start Date: 02/15/21 Stop Date: 03/17/21 Status: [...]
--- OUTSIDE RECORDS SUMMARY | 2022-10-09 06:23 | XMS_ITS | Continuity of Care Document ---
:1965 Author Organization [facility] Address [address] [place] [address]- Care Team Providers Name Role Phone Ana Funk MD Primary Care Physician Encounter [facility] Date(s): 12/28/19 - 01/07/20 [facility] [address] [place] [address]- [facility] Attending Physician: Chris Khan Admitting Physician: AdmChris singh Referring Physician: AdmtrChris Allergies, Adverse Reactions, Alerts Substance Reaction Severity [...] 1Result Comment: [07/24/2017] [facility]# [id number] Comment: [07/24/2016] SEQIRUS Medications etodolac 500 mg [...]
--- OUTSIDE RECORDS SUMMARY | 2022-10-09 06:23 | XMS_ITS | Continuity of Care Document ---
:1965 Author Organization [facility] Address [address] [place] [address]- Care Team Providers Name Role Phone Darvin Choi MD, Aan Primary Care Physician [phone] Encounter [facility] Date(s): 01/21/22 - 02/20/22 [facility] [address] [place], [place] [address] Allergies, Adverse Reactions, Alerts No Known Allergies [...] Vaccine (oldterm) 11/11/06 Given 1Result Comment: [07/24/2017] [facility]# [id number] Comment: [07/24/2016] SEQIRUS Problem List Condition Effective [...]
--- OUTSIDE RECORDS SUMMARY | 2022-10-09 06:23 | XMS_ITS | Continuity of Care Document ---
:1965 Author Organization [facility] Address [address] [place] [address]- Care Team Providers Name Role Phone Ana Funk MD Primary Care Physician Encounter [facility] Date(s): 11/20/20 - 03/20/21 [facility] [address] [place], [place] [address] Attending Physician: Ana Funk MD Allergies, Adverse Reactions, Alerts Substance Reaction Severity [...] Vaccine (oldterm) 11/11/06 Given 1Result Comment: [07/24/2017] [facility]# [id number] Comment: [07/24/2016] [facility] Medications amLODIPine 5 mg oral tablet 5 mg, 1, tablet, By Mouth, Daily, MUST SCHEDULE APPT WITH PCP FOR ADDITIONAL MEDICATION, # 7 tablet,Refills 0, Tot. Refills 0, Maintenance, 02/15/21 18:05:00 EDT, Route to Pharmacy Electronically, [facility] #[id number], 170, cm, 05/21/20 8:58:0... Start Date: 02/15/21 [...] 18:05:00 EDT, Inhaler, Route to Pharmacy Electronically, [id number]... Start Date: 02/15/21 Stop Date: 03/17/21 Status: [...]
--- OUTSIDE RECORDS SUMMARY | 2022-10-09 06:23 | XMS_ITS | Continuity of Care Document ---
:1965 Author Organization [facility] Address [address] [place] [address]- Care Team Providers Name Role Phone Darvin Choi MD, Ana Primary Care Physician Encounter [facility] Date(s): 05/27/22 - 06/26/22 [facility] [address] [place] [address] Attending Physician: Chris Khan Allergies, Adverse Reactions, Alerts No Known Allergies Immunizations Given and Recorded Vaccine Date Status Refusal Reason SARS-CoV-2 mRNA (ogpfdpq-tncd-kqpky) vax 06/04/22 Given influenza virus vaccine, inactivated [...] Vaccine (oldterm) 11/11/06 Given 1Result Comment: [07/24/2017] [facility]# [id number] Comment: [07/24/2016] [facility]US Medications albuterol 0.083% inhalation solution See Instructions, USE 1 VIAL VIA NEBULIZER EVERY 4-6 HOURS NEEDED FOR WHEEZING, # 100 each, 6 Refills, Maintenance, 11/21/21 10:47:00 [facility] #[id number], 170, cm, 11/21/21 10:08:00 EST, Height Start Date: 11/21/21 Status: OrderedamLODIPine 10 mg oral tablet 1 tablet, By Mouth, Daily, # 30 tablet, 2 Refills, Maintenance, 06/06/22 7:21:00 EDT, [facility] #[id number], 170, cm, 06/04/22 9:54:00 EDT, Height Start Date: 06/06/22 Status: Orderedduloxetine 30 mg oral enteric coated capsule 3 capsule = 90 mg, By Mouth, Daily, # 90 capsule, 3 Refills, Maintenance, 02/17/22 9:23:00 EDT, EC Capsule, [facility] #[id number], Partial fill upon patient request if the prescription is for a schedule II opioid drug., 170, cm, 02/17/22 9:22:00... Start Date: 02/17/22 Stop Date: 06/17/22 Status: Orderedlosartan 25 mg oral tablet 25 mg, 1, tablet, By Mouth, Daily, # 30 tablet, Refills 4, Tot. Refills 4, Maintenance, 02/17/22 9:21:00 EDT, Route to Pharmacy Electronically, [facility] #[id number], Partial fill upon patient request if the prescription is for a schedule II opi... Start Date: 02/17/22 Stop Date: 07/17/22 Status: OrderedLyrica 75 mg oral capsule 1 capsule = 75 mg, By Mouth, 2 times a day, # 60 capsule, 5 Refills, Maintenance, 11/21/21 12:33:00 EST, Capsule, [facility] #[id number], 170, cm, 11/21/21 10:08:00 EST, Height Start [...] 10:47:00 EST, Inhaler, Route to Pharmacy Electronically, [id number]... Start Date: 11/21/21 Stop Date: 06/19/22 Status: [...] Care Team PersonnelName: Ana Funk MD Address: [address] [place] [address]
--- OUTSIDE RECORDS SUMMARY | 2022-10-09 06:23 | XMS_ITS | Continuity of Care Document ---
:1965 Author Organization [facility] Address [address] [place] [address]- Care Team Providers Name Role Phone Darvin Choi MD, Ana Primary Care Physician Encounter [facility] Date(s): 03/07/22 - 04/06/[address] [address] Allergies, Adverse Reactions, Alerts No Known Allergies [...] Vaccine (oldterm) 11/11/06 Given 1Result Comment: [07/24/2017] [facility]# [id number] Comment: [07/24/2016] SEQIRUS Problem List Condition Effective [...]
--- OUTSIDE RECORDS SUMMARY | 2022-10-09 06:23 | XMS_ITS | Continuity of Care Document ---
:1965 Author Organization [facility] Address [address] [place] [address]- Care Team Providers Name Role Phone Ana Funk MD Primary Care Physician [phone] Encounter [facility] Date(s): 01/31/20 - 05/30/[address] [address]- [facility] Attending Physician: Ana Funk MD Admitting Physician: Ana Funk MD Allergies, Adverse Reactions, [...] Vaccine (oldterm) 11/11/06 Given 1Result Comment: [07/24/2017] [facility]# [id number] Comment: [07/24/2016] SEQIRUS Medications etodolac 500 mg [...]
--- OUTSIDE RECORDS SUMMARY | 2022-10-09 06:23 | XMS_ITS | Continuity of Care Document ---
:1965 Author Organization [facility] Address [address] [place] [address]- Care Team Providers Name Role Phone Ana Funk MD Primary Care Physician [facility] Date(s): 09/04/21 - 10/04/21 [facility] [address] [place] [address] Attending Physician: Admtr, Yasmany8 Allergies, Adverse Reactions, Alerts Substance Reaction Severity [...] Vaccine (oldterm) 11/11/06 Given 1Result Comment: [07/24/2017] [facility]# [id number] Comment: [07/24/2016] [facility] Medications ProAir HFA 90 mcg/inh inhalation aerosol with adapter 2, puffs, Inhalation, Every 6 hours, NO ADDTIONAL REFILLS UNTIL SEEN BY PCP- PLEASE SCHEDULE APPT., # 1 each, Refills 0, Tot. Refills 0, Maintenance, 02/15/21 18:05:00 EDT, Inhaler, Route to Pharmacy Electronically, [id number]... Start Date: 02/15/21 Stop Date: 03/17/21 Status: [...]
--- OUTSIDE RECORDS SUMMARY | 2022-10-09 06:23 | XMS_ITS | Continuity of Care Document ---
:1965 Author Organization [facility] Address [address] [place] [address]- Care Team Providers Name Role Phone Darvin Choi MD, Ana Primary Care Physician En[facility] Date(s): 08/02/21 - 11/25/[address] [address] Attending Physician: Mark MATSON ([facility])Marcio Admitting Physician: Mark MATSON ([facility])Marcio Referring Physician: Mark MATSON ([facility])Marcio Allergies, Adverse Reactions, Alerts No Known Allergies [...] 11/11/06 Given 1Result Comment: [07/24/2017] [facility]# [id number] Comment: [07/24/2016] SEQIRUS Problem List Condition Effective Dates Status Health Status Informant Asthma(Confirmed) Active Bipolar disorder(Confirmed) Active Obesity, Class III, BMI 40-49.9 Active (morbid obesity)(Confirmed) Chronic pain syndrome(Confirmed) Active Fibromyalgia(Confirmed) 05/22/08 Active BETO - Generalized anxiety Active disorder(Confirmed) Hypertension(Confirmed) Active Hyperthyroidism(Confirmed) Active Insomnia(Confirmed) Active Knee pain, bilateral(Confirmed) Active Low back pain(Confirmed) Active Mild intermittent asthma(Confirmed) Active Nocturnal Sleep-Related Eating Active Disorder(Confirmed) Subluxation of peroneal tendon of left Active foot(Confirmed) Vitamin d deficiency(Confirmed) Active Social History Social History Type Response Smoking Status Never smoker entered on: 12/25/15 Sex
--- OUTSIDE RECORDS SUMMARY | 2022-10-09 06:23 | XMS_ITS | Continuity of Care Document ---
:1965 Author Organization [facility] Address [address] [place] [address]- Care Team Providers Name Role Phone Darvin Choi MD, Ana Primary Care Physician Encounter [facility] Date(s): 06/05/20 - 07/06/[address] [address]- [facility] Attending Physician: Not on Staff, Attending MD Allergies, Adverse Reactions, Alerts Substance Reaction [...] (oldterm) 11/11/06 Given 1Result Comment: [07/24/2017] [facility]# [id number] Comment: [07/24/2016] [facility]IRUS Medications etodolac 500 mg [...]
--- OUTSIDE RECORDS SUMMARY | 2022-10-09 06:23 | XMS_ITS | Continuity of Care Document ---
:1965 Author Organization [facility] Address [address] [place] [address]- Care Team Providers Name Role Phone Ana Funk MD Primary Care Physician [facility] Date(s): 08/06/22 - 09/05/22 [facility] [address] [place] [address]- Attending Physician: Admtr, Chris Allergies, Adverse Reactions, Alerts No Known Allergies Immunizations Given and Recorded Vaccine Date Status Refusal Reason SARS-CoV-2 mRNA (wextgtb-txrf-ibivy) vax 06/04/22 Given influenza virus vaccine, inactivated [...] 11/11/06 Given 1Result Comment: [07/24/2017] [facility]# [id number] Comment: [07/24/2016] [facility] Medications albuterol 0.083% inhalation solution See Instructions, USE 1 VIAL VIA NEBULIZER EVERY 4-6 HOURS NEEDED FOR WHEEZING, # 100 each, 6 Refills, Maintenance, 11/21/21 10:47:00 [facility], [facility] #[id number], 170, cm, 11/21/21 10:08:00 EST, Height Start Date: 11/21/21 Status: OrderedamLODIPine 5 mg oral tablet 1 tablet, By Mouth, Daily, # 30 tablet, 0 Refills, Maintenance, 07/14/22 13:22:00 EDT, [facility] #[id number], 170, cm, 07/09/22 13:35:00 EDT, Height Start Date: 07/14/22 Status: Orderedduloxetine 30 mg oral enteric coated capsule 3 capsule = 90 mg, By Mouth, Daily, # 90 capsule, 3 Refills, Maintenance, 02/17/22 9:23:00 EDT, EC Capsule, [facility] #[id number], Partial fill upon patient request if the prescription is for a schedule II opioid drug., 170, cm, 02/17/22 9:22:00... Start Date: 02/17/22 Stop Date: 06/17/22 Status: Orderedlosartan 25 mg oral tablet 1 tablet, By Mouth, Daily, # 30 tablet, 5 Refills, Maintenance, 07/13/22 7:39:00 EDT, [facility] #[id number], 170, cm, 07/09/22 13:35:00 EDT, Height Start Date: 07/13/22 Status: OrderedLyrica 75 mg oral capsule 1 capsule = 75 mg, By Mouth, 2 times a day, NEEDS AN APPOINTMENT FOR FURTHER REFILLS, # 60 capsule, 0 Refills, Maintenance, 07/14/22 13:27:00 EDT, Capsule, [facility] #[id number], 170, cm, 07/09/22 13:35:00 EDT, Height Start [...] 10:47:00 EST, Inhaler, Route to Pharmacy Electronically, [id number]... Start Date: 11/21/21 Stop Date: 06/19/22 Status: [...] on: 12/25/15 Sex Patient Care team information Care Team PersonnelName: Darvin Choi MD, Ana Position: [facility] Primary Care Physician Member Role: PCP Address: Address: [address] [place] [address]- Care Team Related PersonsName: CUCO SANZ Address: [address] [place] [address] Name: QUENTIN VORA Address: home [address] [place] [address] Name: KEHINDE VORA Address: [address] [address]
--- OUTSIDE RECORDS SUMMARY | 2022-10-09 06:23 | XMS_ITS | Continuity of Care Document ---
:1965 Author Organization [facility] Address [address] [place] [address]- Care Team Providers Name Role Phone Ana Funk MD Primary Care Physician Encounter [facility] Date(s): 12/18/21 - 02/08/22 [facility] [address] [place] [address] Attending Physician: Jamison Alexander MD Admitting Physician: Jamison Alexander MD Allergies, Adverse Reactions, Alerts No Known [...] Vaccine (oldterm) 11/11/06 Given 1Result Comment: [07/24/2017] [facility]# [id number] Comment: [07/24/2016] SEQIRUS Problem List Condition Effective [...]
--- OUTSIDE RECORDS SUMMARY | 2022-10-09 06:23 | XMS_ITS | Continuity of Care Document ---
:1965 Author Organization [facility] Address [address] [place] [address]- Care Team Providers Name Role Phone Darvin Choi MD, Ana Primary Care Physician Encounter [facility] Date(s): 06/06/20 - 07/06/[address] [address] [facility] Attending Physician: Chris Khan Admitting Physician: Chris [...] Given 1Result Comment: [07/24/2017] [facility]# [id number] Comment: [07/24/2016] [facility] Medications etodolac 500 mg oral tablet 1 tablet = 500 mg, By Mouth, 2 times a day, # 180 tablet, 0 Refills, Maintenance, 07/26/19 12:24:45 EDT, Tablet Start Date: 10/22/19 Status: Ordered Problem List Condition Effective Dates [...]
--- OUTSIDE RECORDS SUMMARY | 2022-10-09 06:24 | XMS_ITS | Continuity of Care Document ---
:1965 Author Organization [facility] Address [address] [place] [address]- Care Team Providers Name Role Phone Darvin Choi MD, Ana Primary Care Physician Encounter [facility] Date(s): 05/16/20 - 09/13/[address] [address] Attending Physician: Ana Funk MD Admitting Physician: [...] Vaccine (oldterm) 11/11/06 Given 1Result Comment: [07/24/2017] [facility]# [id number] Comment: [07/24/2016] [facility] Medications etodolac 500 mg [...]
--- OUTSIDE RECORDS SUMMARY | 2022-10-09 06:24 | XMS_ITS | Continuity of Care Document ---
:1965 Author Organization [facility] Address [address] [place] [address]- Care Team Providers Name Role Phone Darvin Choi MD, Ana Primary Care Physician [phone] Encounter [facility] Date(s): 06/18/20 - 07/18/[address] [address]- [facility] Allergies, Adverse Reactions, Alerts Substance Reaction Severity [...] (oldterm) 11/11/06 Given 1Result Comment: [07/24/2017] [facility]# [id number] Comment: [07/24/2016] [facility]IR[facility] Medications etodolac 500 mg [...]
--- OUTSIDE RECORDS SUMMARY | 2022-10-09 06:24 | XMS_ITS | Continuity of Care Document ---
:1965 Author Organization [facility] Address [address] [place] [address]- Care Team Providers Name Role Phone Ana Funk MD Primary Care Physician Encounter [facility] Date(s): 02/21/22 - 06/21/22 [facility] [address] [place], [place] [address] Attending Physician: Ana Funk MD Allergies, Adverse Reactions, Alerts No Known Allergies Immunizations Given and Recorded Vaccine Date Status Refusal Reason SARS-CoV-2 mRNA (koylbul-wgpt-goxca) vax 06/04/22 Given influenza virus vaccine, inactivated [...] Vaccine (oldterm) 11/11/06 Given 1Result Comment: [07/24/2017] [facility]# [id number] Comment: [07/24/2016] [facility] Medications albuterol 0.083% inhalation solution See Instructions, USE 1 VIAL VIA NEBULIZER EVERY 4-6 HOURS NEEDED FOR WHEEZING, # 100 each, 6 Refills, Maintenance, 11/21/21 10:47:00 EST, [facility] #[id number], 170, cm, 11/21/21 10:08:00 EST, Height Start Date: 11/21/21 Status: OrderedamLODIPine 10 mg oral tablet 1 tablet, By Mouth, Daily, # 30 tablet, 2 Refills, Maintenance, 06/06/22 7:21:00 EDT, [facility][id number], 170, cm, 06/04/22 9:54:00 EDT, Height Start Date: 06/06/22 Status: Orderedduloxetine 30 mg oral enteric coated capsule 3 capsule = 90 mg, By Mouth, Daily, # 90 capsule, 3 Refills, Maintenance, 02/17/22 9:23:00 EDT, EC Capsule, [facility] #[id number], Partial fill upon patient request if the prescription is for a schedule II opioid drug., 170, cm, 02/17/22 9:22:00... Start Date: 02/17/22 Stop Date: 06/17/22 Status: Orderedlosartan 25 mg oral tablet 25 mg, 1, tablet, By Mouth, Daily, # 30 tablet, Refills 4, Tot. Refills 4, Maintenance, 02/17/22 9:21:00 EDT, Route to Pharmacy Electronically, [facility] #[id number], Partial fill upon patient request if the prescription is for a schedule II opi... Start Date: 02/17/22 Stop Date: 07/17/22 Status: OrderedLyrica 75 mg oral capsule 1 capsule = 75 mg, By Mouth, 2 times a day, # 60 capsule, 5 Refills, Maintenance, 11/21/21 12:33:00 EST, Capsule, [facility] #[id number], 170, cm, 11/21/21 10:08:00 EST, Height Start [...] 10:47:00 EST, Inhaler, Route to Pharmacy Electronically, [id number]... Start Date: 11/21/21 Stop Date: 06/19/22 Status: [...] Care Team PersonnelName: Ana Funk MD Address: [address] [place] [address]
--- OUTSIDE RECORDS SUMMARY | 2022-10-09 06:24 | XMS_ITS | Continuity of Care Document ---
:1965 Author Organization [facility] Address Unavailable , Care Team Providers Name Role Phone Darvin Choi MD, Ana Primary Care Physician [phone] Encounter [facility] Date(s): 09/16/21 - 10/16/21 [facility] Allergies, Adverse Reactions, Alerts Substance Reaction Severity [...] Vaccine (oldterm) 11/11/06 Given 1Result Comment: [07/24/2017] [facility]# [id number] Comment: [07/24/2016] [facility] Medications ProAir HFA 90 mcg/inh inhalation aerosol with adapter 2, puffs, Inhalation, Every 6 hours, NO ADDTIONAL REFILLS UNTIL SEEN BY PCP- PLEASE SCHEDULE APPT., # 1 each, Refills 0, Tot. Refills 0, Maintenance, 02/15/21 18:05:00 EDT, Inhaler, Route to Pharmacy Electronically, [id number]... Start Date: 02/15/21 Stop Date: 03/17/21 Status: [...]
--- OUTSIDE RECORDS SUMMARY | 2022-10-09 06:24 | XMS_ITS | Continuity of Care Document ---
:1965 Author Organization [facility] Address [address] [place] [address]- Care Team Providers Name Role Phone Darvin Choi MD, Ana Primary Care Physician [phone] [facility] Date(s): 07/16/21 - 08/15/[address] [address] Allergies, Adverse Reactions, Alerts Substance Reaction Severity [...] (oldterm) 11/11/06 Given 1Result Comment: [07/24/2017] [facility]# [id number] Comment: [07/24/2016] [facility] Medications etodolac 500 mg [...] 18:05:00 EDT, Inhaler, Route to Pharmacy Electronically, [id number]... Start Date: 02/15/21 Stop Date: 03/17/21 Status: [...]
--- OUTSIDE RECORDS SUMMARY | 2022-10-09 06:24 | XMS_ITS | Continuity of Care Document ---
:1965 Author Organization [facility] Address [address] [place] [address]- Care Team Providers Name Role Phone Darvin Choi MD, Ana Primary Care Physician Encounter [facility] Date(s): 03/17/22 - 04/16/22 [facility] [address] [place], [place] [address] Attending Physician: Chris Khan Admitting [...] Vaccine (oldterm) 11/11/06 Given 1Result Comment: [07/24/2017] [facility]# [id number] Comment: [07/24/2016] [facility] Problem List Condition Effective [...]
--- OUTSIDE RECORDS SUMMARY | 2022-10-09 06:24 | XMS_ITS | Continuity of Care Document ---
:1965 Author Organization [facility] Address [address] [place] [address]- Care Team Providers Name Role Phone Darvin Choi MD, Ana Primary Care Physician [phone] Encounter [facility] Date(s): 12/25/20 - 01/24/21 [facility] [address] [place], [place] [address] Allergies, Adverse Reactions, Alerts Substance Reaction Severity [...] [facility]# [id number] Comment: [07/24/2016] [facility] Medications etodolac 500 mg [...]
--- OUTSIDE RECORDS SUMMARY | 2022-10-09 06:24 | XMS_ITS | Continuity of Care Document ---
:1965 Author Organization [facility] Address [address] [place] [address]- Care Team Providers Name Role Phone Darvin Choi MD, Ana Primary Care Physician [phone] Encounter [facility] Date(s): 07/15/21 - 08/14/[address] [address] Attending Physician: Chris Khan Admitting Physician: [...] [07/24/2017] [facility]# [id number] Comment: [07/24/2016] [facility] Medications etodolac 500 mg [...] 18:05:00 EDT, Inhaler, Route to Pharmacy Electronically, [id number]... Start Date: 02/15/21 Stop Date: 03/17/21 Status: [...]
--- OUTSIDE RECORDS SUMMARY | 2022-10-09 06:24 | XMS_ITS | Continuity of Care Document ---
:1965 Author Organization [facility] Address [address] [place] [address]- Care Team Providers Name Role Phone Ana Funk MD Primary Care Physician Encounter [facility] Date(s): 09/29/19 - 01/27/20 [facility] [address] [place] [address]- [facility] Attending Physician: Sammy Lay MD Allergies, Adverse Reactions, Alerts Substance Reaction [...] 1Result Comment: [07/24/2017] [facility]# [id number] Comment: [07/24/2016] [facility] Medications etodolac 500 mg [...]
--- OUTSIDE RECORDS SUMMARY | 2022-10-09 06:24 | XMS_ITS | Continuity of Care Document ---
:1965 Author Organization [facility] Address [address] [place] [address]- Care Team Providers Name Role Phone Darvin Choi MD, Ana Primary Care Physician [phone] Encounter [facility] Date(s): 05/14/20 - 06/16/[address] [address]- [facility] Attending Physician: Aura Cadet NP Admitting Physician: Aura Cadet NP Allergies, Adverse Reactions, Alerts Substance Reaction Severity [...] (oldterm) 11/11/06 Given 1Result Comment: [07/24/2017] [facility]# [id number] Comment: [07/24/2016] [facility] Medications etodolac 500 mg [...]
--- OUTSIDE RECORDS SUMMARY | 2022-10-09 06:24 | XMS_ITS | Continuity of Care Document ---
:1965 Author Organization [facility] Address [address] [place] [address]- Care Team Providers Name Role Phone Darvin Choi MD, Ana Primary Care Physician Encounter [facility] Date(s): 02/17/22 - 03/19/22 [facility] [address] [place], [place] [address] Allergies, Adverse Reactions, Alerts No Known [...] (oldterm) 11/11/06 Given 1Result Comment: [07/24/2017] [facility]# [id number] Comment: [07/24/2016] [facility]US Problem List Condition Effective [...]
--- OUTSIDE RECORDS SUMMARY | 2022-10-09 06:24 | XMS_ITS | Continuity of Care Document ---
:1965 Author Organization [facility] Address [address] [place] [address]- Care Team Providers Name Role Phone Ana Funk MD Primary Care Physician Encounter [facility] Date(s): 06/04/22 - 07/26/22 [facility] [address] [place], [place] [address] Attending Physician: Ana Funk MD Allergies, Adverse Reactions, Alerts No Known Allergies Immunizations Given and Recorded Vaccine Date Status Refusal Reason SARS-CoV-2 mRNA (qlqaido-foyy-vuucs) vax 06/04/22 Given influenza virus vaccine, inactivated [...] (oldterm) 11/11/06 Given 1Result Comment: [07/24/2017] [facility]# [id number] Comment: [07/24/2016] [facility] Medications albuterol 0.083% inhalation solution See Instructions, USE 1 VIAL VIA NEBULIZER EVERY 4-6 HOURS NEEDED FOR WHEEZING, # 100 each, 6 Refills, Maintenance, 11/21/21 10:47:00 EST, [facility] #[id number], 170, cm, 11/21/21 10:08:00 EST, Height Start Date: 11/21/21 Status: OrderedamLODIPine 5 mg oral tablet 1 tablet, By Mouth, Daily, # 30 tablet, 0 Refills, Maintenance, 07/14/22 13:22:00 EDT, [facility] #[id number], 170, cm, 07/09/22 13:35:00 EDT, Height Start Date: 07/14/22 Status: Orderedduloxetine 30 mg oral enteric coated capsule 3 capsule = 90 mg, By Mouth, Daily, # 90 capsule, 3 Refills, Maintenance, 02/17/22 9:23:00 EDT, EC Capsule, [facility] #[id number], Partial fill upon patient request if the prescription is for a schedule II opioid drug., 170, cm, 02/17/22 9:22:00... Start Date: 02/17/22 Stop Date: 06/17/22 Status: Orderedlosartan 25 mg oral tablet 1 tablet, By Mouth, Daily, # 30 tablet, 5 Refills, Maintenance, 07/13/22 7:39:00 EDT, [facility] #[id number], 170, cm, 07/09/22 13:35:00 EDT, Height Start Date: 07/13/22 Status: OrderedLyrica 75 mg oral capsule 1 capsule = 75 mg, By Mouth, 2 times a day, NEEDS AN APPOINTMENT FOR FURTHER REFILLS, # 60 capsule, 0 Refills, Maintenance, 07/14/22 13:27:00 EDT, Capsule, [facility] #[id number], 170, cm, 07/09/22 13:35:00 EDT, Height Start [...] 10:47:00 EST, Inhaler, Route to Pharmacy Electronically, [id number]... Start Date: 11/21/21 Stop Date: 06/19/22 Status: [...] information PersonnelName: Ana Funk MD Address: Address: [address] [place] [address]
--- OUTSIDE RECORDS SUMMARY | 2022-10-09 06:24 | XMS_ITS | Continuity of Care Document ---
:1965 Author Organization [facility] Address [address] [place] [address]- Care Team Providers Name Role Phone Darvin Choi MD, Ana Primary Care Physician [phone] Encounter [facility] Date(s): 04/01/21 - 05/01/21 [facility] [address] [place], [place] [address] Allergies, Adverse Reactions, Alerts Substance Reaction [...] 11/11/06 Given 1Result Comment: [07/24/2017] [facility]# [id number] Comment: [07/24/2016] [facility] Medications amLODIPine 5 mg oral tablet 5 mg, 1, tablet, By Mouth, Daily, MUST SCHEDULE APPT WITH PCP FOR ADDITIONAL MEDICATION, # 7 tablet,Refills 0, Tot. Refills 0, Maintenance, 02/15/21 18:05:00 EDT, Route to Pharmacy Electronically, [facility] #[id number], 170, cm, 05/21/20 8:58:0... Start Date: 02/15/21 [...] 18:05:00 EDT, Inhaler, Route to Pharmacy Electronically, [id number]... Start Date: 02/15/21 Stop Date: 03/17/21 Status: [...]
--- OUTSIDE RECORDS SUMMARY | 2022-10-09 06:24 | XMS_ITS | Continuity of Care Document ---
:1965 Author Organization [facility] Address [address] [place] [address]- Care Team Providers Name Role Phone Ana Funk MD Primary Care Physician [facility] Date(s): 05/13/22 - 06/12/22 [facility] [address] [place] [address] Allergies, Adverse Reactions, Alerts No Known Allergies Immunizations Given and Recorded Vaccine Date Status Refusal Reason SARS-CoV-2 mRNA (xfxryac-pzuj-jznvx) vax 06/04/22 Given influenza virus vaccine, inactivated [...] Vaccine (oldterm) 11/11/06 Given 1Result Comment: [07/24/2017] [facility]# [id number] Comment: [07/24/2016] [facility] Medications albuterol 0.083% inhalation solution See Instructions, USE 1 VIAL VIA NEBULIZER EVERY 4-6 HOURS NEEDED FOR WHEEZING, # 100 each, 6 Refills, Maintenance, 11/21/21 10:47:00 [facility] #[id number], 170, cm, 11/21/21 10:08:00 EST, Height Start Date: 11/21/21 Status: OrderedamLODIPine 10 mg oral tablet 1 tablet, By Mouth, Daily, # 30 tablet, 2 Refills, Maintenance, 06/06/22 7:21:00 EDT, [id number], 170, cm, 06/04/22 9:54:00 EDT, Height Start Date: 06/06/22 Status: Orderedduloxetine 30 mg oral enteric coated capsule 3 capsule = 90 mg, By Mouth, Daily, # 90 capsule, 3 Refills, Maintenance, 02/17/22 9:23:00 EDT, EC Capsule, [facility] #[id number], Partial fill upon patient request if the prescription is for a schedule II opioid drug., 170, cm, 02/17/22 9:22:00... Start Date: 02/17/22 Stop Date: 06/17/22 Status: Orderedlosartan 25 mg oral tablet 25 mg, 1, tablet, By Mouth, Daily, # 30 tablet, Refills 4, Tot. Refills 4, Maintenance, 02/17/22 9:21:00 EDT, Route to Pharmacy Electronically, [facility] #[id number], Partial fill upon patient request if the prescription is for a schedule II opi... Start Date: 02/17/22 Stop Date: 07/17/22 Status: OrderedLyrica 75 mg oral capsule 1 capsule = 75 mg, By Mouth, 2 times a day, # 60 capsule, 5 Refills, Maintenance, 11/21/21 12:33:00 EST, Capsule, [facility] #[id number], 170, cm, 11/21/21 10:08:00 EST, Height Start [...] 10:47:00 EST, Inhaler, Route to Pharmacy Electronically, [id number]... Start Date: 11/21/21 Stop Date: 06/19/22 Status: [...] Care Team PersonnelName: Ana Funk MD Address: [address] [place] [address]
--- OUTSIDE RECORDS SUMMARY | 2022-10-09 06:24 | XMS_ITS | Continuity of Care Document ---
:1965 Author Organization [facility] Address [address] [place] [address]- Care Team Providers Name Role Phone Darvin Choi MD, Ana Primary Care Physician Encounter [facility] Date(s): 06/18/20 - 07/18/[address] [address] [facility] Allergies, Adverse Reactions, Alerts Substance Reaction Severity [...] Vaccine (oldterm) 11/11/06 Given 1Result Comment: [07/24/2017] [facility]# [id number] Comment: [07/24/2016] [facility] Medications etodolac 500 mg [...]
--- OUTSIDE RECORDS SUMMARY | 2022-10-09 06:24 | XMS_ITS | Continuity of Care Document ---
:1965 Author Organization [facility] Address [address] [place] [address]- Care Team Providers Name Role Phone Darvin Choi MD, Ana Primary Care Physician [phone] Encounter [facility] Date(s): 06/20/20 - 07/20/[address] [address] [facility] Allergies, Adverse Reactions, Alerts Substance Reaction Severity [...] Vaccine (oldterm) 11/11/06 Given 1Result Comment: [07/24/2017] [facility]# [id number] Comment: [07/24/2016] [facility] Medications etodolac 500 mg [...]
--- OUTSIDE RECORDS SUMMARY | 2022-10-09 06:24 | XMS_ITS | Continuity of Care Document ---
:1965 Author Organization [facility] Address [address] [place] [address]- Care Team Providers Name Role Phone Darvin Choi MD, Ana Primary Care Physician Encounter [facility] Date(s): 05/30/20 - 06/29/[address] [address]- [facility] Allergies, Adverse Reactions, Alerts Substance [...] Vaccine (oldterm) 11/11/06 Given 1Result Comment: [07/24/2017] [facility]# [id number] Comment: [07/24/2016] [facility] Medications etodolac 500 mg [...]
--- OUTSIDE RECORDS SUMMARY | 2022-10-09 06:24 | XMS_ITS | Continuity of Care Document ---
:1965 Author Organization [facility] Address [address] [place] [address]- Care Team Providers Name Role Phone Darvin Choi MD, Ana Primary Care Physician [phone] Encounter [facility] Date(s): 09/01/22 - 10/01/22 [facility] [address] [place], [place] [address] Allergies, Adverse Reactions, Alerts No Known Allergies Immunizations Given and Recorded Vaccine Date Status Refusal Reason SARS-CoV-2 mRNA (uiqmfhx-wevv-awaud) vax 06/04/22 Given influenza virus vaccine, inactivated [...] Vaccine (oldterm) 11/11/06 Given 1Result Comment: [07/24/2017] [facility]# [id number] Comment: [07/24/2016] [facility] Medications albuterol 0.083% inhalation solution See Instructions, USE 1 VIAL VIA NEBULIZER EVERY 4-6 HOURS NEEDED FOR WHEEZING, # 100 each, 6 Refills, Maintenance, 11/21/21 10:47:00 [facility], [facility] #[id number], 170, cm, 11/21/21 10:08:00 EST, Height Start Date: 11/21/21 Status: OrderedamLODIPine 10 mg oral tablet 1 tablet, By Mouth, Daily, # 30 tablet, 5 Refills, Maintenance, 09/11/22 13:46:00 EST, [facility] #[id number], 170, cm, 09/09/22 17:36:00 EST, Height Start Date: 09/11/22 Status: Orderedduloxetine 30 mg oral enteric coated capsule 3 capsule = 90 mg, By Mouth, Daily, # 90 capsule, 3 Refills, Maintenance, 02/17/22 9:23:00 EDT, EC Capsule, [facility] #[id number], Partial fill upon patient request if the prescription is for a schedule II opioid drug., 170, cm, 02/17/22 9:22:00... Start Date: 02/17/22 Stop Date: 06/17/22 Status: OrderedFlonase 50 mcg/inh nasal spray 1 sprays, Nares, Both, 2 times a day, # 16 Gm, 4 Refills, Maintenance, 09/09/22 17:05:00 EST, [place] #[id number], Partial fill upon patient request if the prescription is for a scheduleII opioid drug., 1 sprays Nares, Both 2 times a d... Start Date: 09/09/22 Stop Date: 02/06/23 Status: Orderedlosartan 25 mg oral tablet 1 tablet, By Mouth, Daily, # 90 tablet, 3 Refills, Maintenance, 09/09/22 16:44:00 EST, [facility] #[id number], 170, cm, 09/09/22 16:19:00 EST, Height Start Date: 09/09/22 Stop Date: 09/04/23 Status: OrderedLyrica 75 mg oral capsule 1 capsule = 75 mg, By Mouth, 2 times a day, NEEDS AN APPOINTMENT FOR FURTHER REFILLS, # 60 capsule, 0 Refills, Maintenance, 07/14/22 13:27:00 EDT, Capsule, [facility] #[id number], 170, cm, 07/09/22 13:35:00 EDT, Height Start [...] 10:47:00 EST, Inhaler, Route to Pharmacy Electronically, [id number]... Start Date: 11/21/21 Stop Date: 06/19/22 Status: OrderedtraMADol 50 mg oral tablet 1 tablet = 50 mg, By Mouth, Every 12 hours, PRN as needed for pain, for 30 days, # 60 tablet, 5 Refills, Acute 03/08/23 16:52:00 EDT, 09/09/22 16:52:00 EST, Tablet, [facility] #[id number], Partialfill upon patient request if the prescription is... Start Date: 09/09/22 Stop Date: 03/08/23 Status: Ordered Problem List Condition Confirmation Course [...] Patient Care team information Care Team PersonnelName: Ana Funk MD Position: S Primary Care Physician Member Role: PCP Address: Address: [address] [place] [address] [place] [address]- Care Team Related PersonsName: CUCO SANZ Address: [address] [place] [address] Name: QUENTIN VORA Address: [address] [place] [address] Name: KEHINDE VORA Address: [address] [address] [place] [address]
[2022-10-09] MEDS: Lactated Ringers 1,000 ML 100 ML IVCONT (07:00)
[2022-10-09] MEDS: Lactated Ringers 1,000 ML 999 ML IV (07:00)
--- NOTE | 2022-10-09 07:40 | PM.OP ---
Brief Operative Note Date of Service: 10/09/22 Pre-op diagnosis: Morbid obesity with comorbidities (see below) Post-op diagnosis: same Procedure: INITIAL PATIENT BMI ON PRESENTATION AT OUR OFFICE: 53.1 kg/m2 LAST BMI BEFORE SURGERY: 48.3 kg/m2 COMORBIDITIES: hypertension, asthma, depression, anxiety, DJD, liver fibrosis ?The patient presented to the Weight Management Program with significant obesity that was negatively impacting the patient's comorbidities as listed above.? The program is a phased program with a special focus on preoperative medical weight management to promote substantial weight loss and prepare the patients for the second phase of the program: bariatric surgery. The patient participated in an intensive weekly lifestyle ?intervention and exercise program during which the patient ?has lost between the initial office visit and the last preoperative visit 34.2 lbs, or 9.79% of initial actual body weight. It was deemed appropriate for the patient to now have bariatric surgery. In light of the current Covid-19 pandemic and the well documented strong association of obesity and increased risk of worse outcomes if infected with Covid-19 (REFERENCES:https://pubmed.ncbi.nlm.nih.gov/37375241/,?https://pubmed.ncbi.nlm.nih.gov/77232534/), any delay in undergoing bariatric surgery may lead to the patient's worsening health condition and increased?risk of more severe Covid-19 disease if infected. In addition a recent?study from [facility] published in [employer] on 09/30/2021 ([email or web address]) found that, among patients with obesity, substantial weight loss achieved with surgery was associated with improved outcomes of COVID-19 infection. The findings suggest that obesity can be a modifiable risk factor for the severity of COVID-19 infection. In addition, the patient met the BMI-criteria for bariatric surgery based on the BMI on initial presentation. The patient should not be penalized for achieving such weight loss because ?it is not sustainable long-term without surgical intervention and it was achieved in preparation for bariatric surgery ?under my direction and based on my published research ([email or web address]).pdf and?https://www.soard.org/article/[email or web address](43)14451-X/pdf) ?that a 10% preoperative weight loss improves long-term weight loss after surgery and reduces perioperative complications.? Insurance carriers such as [facility] have endorsed my recommendations ?and have included in their policies criteria to include a 10% preoperative weight loss requirement. PROCEDURE: Esophago-gastroscopy, laparoscopic sleeve gastrectomy and laparoscopic gastropexy INDICATIONS: This is a 57 year-old female who was electively scheduled for laparoscopic, possibly open sleeve gastrectomy. The risks and complications of the procedure were discussed with the patient in advance, particularly the possibility of ; pulmonary embolism; staple line leak; bleeding; GERD; cardiac, pulmonary, or renal complications; as well as long-term problems such as insufficient weight loss, vitamin deficiency, strictures, or ulcers. The patient understood all the risks, and was in agreement to proceed with surgery. DESCRIPTION OF PROCEDURE: After informed consent was obtained from the patient, the patient was given preoperative antibiotics, and was transferred to the operating room. After successful induction of general anesthesia, pneumatic compression devices were placed on both lower extremities. An upper endoscopy was performed next. The oropharynx and esophagus appeared to be within normal limits. There was no diaphragmatic hernia present consistent with the findings of the preoperative upper GI. The stomach was entered. Then after all fluid and air were suctioned and the stomach was fully decompressed, the scope was withdrawn and secured in the mid esophagus. The patient was then prepped and draped in the usual sterile manner, and abdominal access was established at the right upper quadrant with the Sonia technique. A 12 mm blunt port was inserted, and the abdomen was insufflated with CO2 to a pressure of 15 mmHg. Under direct visualization, additional ports were placed, specifically two 5 mm Versi-step ports to the left upper quadrant, and a 5 mm Versi-Step port to the right upper quadrant. 1% lidocaine plain was used to infiltrate all port sites as well as all fascia defects. Using the EndoClose suture passer device, I placed a #1 Polysorb tie across the falciform ligament in order to retract it up against the abdominal wall and prevent injury of the ligament with our instruments during the procedure. Following that, the patient was placed in a steep reverse Trendelenburg position. An additional 5 mm port was placed to the right flank for the Mediflex retractor that was used to retract the left lobe of the liver. The gastro-esophageal fat pad was opened with the ultrasonic device (Thunderbeat, Olympus) and the anterior esophagus and hiatus were exposed. The angle of His was opened with the ultrasonic device the fundus of the stomach from any diaphragmatic and splenic attachments. I then opened the gastrocolic ligament between the transverse colon and the greater curvature of the stomach with the ultrasonic device to enter the lesser sac and facilitate the ligation of the short gastric vessels. I started at a mid-point along the greater curvature and using the Thunderbeat, all short gastric vessels were divided all the way to the angle of His until the left wander was completely dissected at its entirety. I then divided the gastro-colic ligament distally to a distance of about 3-4 cm proximal to the pylorus. The stomach was then divided transversely with one Endo GILBERT-45 purple and four GILBERT-60 articulating orange loads using the AEON stapler and loads. Every effort was made that the gastric sleeve had a tubular shape and an even caliber throughout. Once the sleeve resection was completed, the staple line of the gastric sleeve was reinforced with Hemoclips. The resected stomach was retrieved without difficulty from the Sonia port. A gastropexy was then performed in order to prevent postoperative GERD and partial gastric volvulus. Several interrupted 2.0 Surgidac sutures were placed between the sleeve's staple line and the previously divided greater omentum and gastro-colic ligament using the Endo-Stitch device. ?An upper endoscopy was performed. There was no narrowing at the GE junction. The scope was easily advanced all the way to the pylorus which was clearly visualized. There was no narrowing anywhere and the sleeve's caliber was even throughout. The sleeve's staple line was inspected and there was no evidence of ischemia, bleeding or dehiscence. At that point the gastroscope was withdrawn from the patient?s mouth while we were decompressing the bowel and the stomach from any remaining air. I looked into the lesser sac to see how the sleeve was situating and it was situating well. There was no bleeding from the staple line, spleen, or short gastric vessels. The Mediflex retractor was removed, and the undersurface of the liver was inspected and there was no bleeding. The patient was placed in supine position. I closed the fascial defect of the 12 mm port site with a figure of eight #1 Polysorb suture. Then 30cc of Ropivacaine plain with 10 mg of Dexamethasone were used to infiltrate the fascial closure as well as all skin incisions. A total of 7ml of Zynrelef was applied in the Sonia wound. At this point, the abdomen was deflated, all ports were removed under direct vision, and no bleeding was noted from any of the port sites. The skin incisions were irrigated with saline and were closed with 4-0 absorbable monofilament sutures. Steri-Strips and OpSites were used to cover all incisions. The patient was extubated and was transferred in stable condition to the recovery room for further care. I was present and performed all barton parts of the procedure. Mr Schmidt was the assistant plant control operator. There were no residents to assist with this case. Domingo Cancino MD, PhD, FACS Surgeon: Tone Cancino MD Anesthesia: GETA, local and other (TAP block and 7ml Zynrelef) Was an Embryology Professor used for this Procedure?: No Embryology Professor: Tyrese Schmidt Estimated blood loss (mL): 10 IV fluids (mL): 2,000 Urine output (mL): 0 (No Barnes to record) Pathology: other (Stomach) Condition: stable Disposition: PACU
--- NOTE | 2022-10-09 07:43 | PM.PNGS ---
Subjective Subjective Date of Service: 10/10/22 Interval history: Patient has mild incisional pain, but was able to ambulate and use the incentive spirometer. She is tolerating phase 1 bariatric diet Physical Exam Vital Signs: Vital Signs: Last Vital Signs Temp 98.3 F 10/09/22 06:34 Pulse 87 10/09/22 06:34 Resp 16 10/09/22 06:34 BP 133/80 10/09/22 06:34 Pulse Ox 97 10/09/22 06:34 O2 Del Method 10/09/22 06:34 BMI result Body Mass Index 47.9 GI: Inspection: Yes normal to inspection, Yes incision (clean, dry and intact) and Yes obesity Extrem: Right lower extremity: normal to inspection (no calf tenderness) Left lower extremity: normal to inspection (no calf tenderness) Objective Data Active Medications Albuterol Sulfate (Albuterol Sulfate (0.083%) 2.5 Mg/3 Ml Vial.Neb) 2.5 mg INHALE ONCE PRN PRN Reason: Shortness of Breath/Wheezing Fentanyl (Fentanyl Citrate/Pf 100 Mcg/2 Ml Vial) 25 mcg IVPUSH Q5M PRN; Protocol PRN Reason: Pain, Moderate (Pain Scale 4-6 Lactated Ringer's (Lr) 1,000 mls @ 100 mls/hr IVCONT .Q10H [facility] Last Admin: 10/09/22 07:00 Dose: 100 mls/hr Documented By: TERE Lactated Ringer's (Lr) 1,000 mls @ 999 mls/hr IV .Q1H1M [facility] Stop: 10/09/22 08:30 Last Admin: 10/09/22 07:00 Dose: 999 mls/hr Documented By: TERE Ondansetron HCl (Ondansetron Hcl 4 Mg/2 Ml Vial) 4 mg IVPUSH ONCE PRN PRN Reason: Nausea and Vomiting Labs 10/10/22 05:02 10/10/22 05:02 Labs: Laboratory Results - last 24 hr 10/08/22 15:05 COVID-19 ([facility]) Negative COVID-19 Clin Com See Note Procedures Date of Service Date of Service: 10/10/22 Progress Note: A&P Assessment and plan (1) Morbid obesity: Status: Acute Assessment and Plan: s/p laparoscopic sleeve gastrectomy and gastropexy Doing well Check am labs. If OK, will discharge home (2) Asthma: Status: Acute (3) Depression: Status: Acute (4) Anxiety: Status: Acute (5) Hypertension: Status: Acute (6) DJD (degenerative joint disease): Status: Acute (7) Liver fibrosis: Status: Acute (8) S/P laparoscopic sleeve gastrectomy: Status: Acute Time Spent With Patient Time: Total time managing care of this patient today ____ minutes. Quality Stroke Does the patient have a stroke diagnosis?: No VTE Prior VTE?: No VTE Risk Level:: Surgical - moderate VTE Device Contraindication: N/A - Device Ordered VTE Drug Contraindication: Treatment Not Indicated
[2022-10-09] MEDS: Acetaminophen 1,000 MG/100 ML PIGGYBACK 400 MG IV (10:15)
--- NOTE | 2022-10-09 10:18 | P.DS_ITS ---
DS: Providers Provider Date of Service: 10/10/22 Date of admission: 10/09/22 06:21 Primary care physician: nAa Choi MD DS: Diagnosis Discharge Diagnosis (1) Morbid obesity: Status: Acute (2) Asthma: Status: Acute (3) Depression: Status: Acute (4) Anxiety: Status: Acute (5) Hypertension: Status: Acute (6) DJD (degenerative joint disease): Status: Acute (7) Liver fibrosis: Status: Acute DS: Summary Hospital Course Hospital Course: ADMITTING DIAGNOSIS: morbid obesity, liver fibrosis, depression, fibromyalgia, htn, anxiety, asthma ? DISCHARGE DIAGNOSIS: same, s/p laparoscopic sleeve gastrectomy ? PAST SURGICAL HISTORY: tubal ligation ? PROCEDURE: upper endoscopy, laparoscopic sleeve gastrectomy ? DISCHARGE SUMMARY: ? History of Present Illness: ? The patient is a?57 year-old woman with a BMI of?53.1 kg/m2 and associated co- morbidities as described above. The patient had extensive work-up,lost?34.4 lbs preoperatively and was electively scheduled for laparoscopic, possible open sleeve gastrectomy and gastropexy. Risks and complications of the surgery were discussed with the patient in advance, particularly the possibility of , pulmonary embolism, anastomotic leak, bleeding, bowel injury, GERD, cardiac, renal or pulmonary complications. The patient understood all the risks and was in agreement with the surgical plan. ? Hospital Course: ? The patient underwent an uneventful laparoscopic sleeve gastrectomy with gastropexy on the day of admission. Postoperatively, the patient was transferred to the surgical floor. The patient received IV Acetaminophen and IV dilaudid for pain control. Patient was started on bariatric phase 1 diet POD #0. On postoperative day one, the patient was feeling well without nausea, vomiting, fevers, or tachycardia. The patient had some mild incisional pain and the abdomen was soft. ? On the morning of postoperative day one, the patient was continued on 1 ounce of water or ice every half hour. During the day, the patient did fairly well, having some incisional pain, but able to ambulate adequately and to tolerate liquids well. ? Since the patient is doing well, we decided that the patient was ready to be discharged. The patient was given instructions to follow-up with me next week and to call my office for any fever over 101, persistent abdominal pain, nausea, vomiting, GERD, symptoms of DVT such as calf tenderness, or leg swelling, or pulmonary embolism such as chest pain or shortness of breath. The patient was also instructed to drink 40-60 ounces of liquids per day using the 1-ounce cups. The patient had been given prescriptions for Tylenol for pain, Zofran prn for nausea, and pantoprazole and carafate previously. The patient was encouraged to ambulate and use the incentive spirometer. The patient was allowed to shower, but no baths, and encouraged to stay active at home. All of these instructions were given to the patient personally. All questions were answered and the patient understood all instructions, the instructions were also given to the patient in print. Time Spent with Patient Time attestation: Total time managing care of this patient today ____ minutes. Discharge coordination time: Less than 30 minutes Quality: Safe Use of Opioids Does Pt have an Active Cancer Diagnosis on the Problem List?: No Quality: Stroke Does the patient have a stroke diagnosis?: No Physical Exam Vital Signs: Vital Signs: Last Vital Signs Temp 98.3 F 10/09/22 06:34 Pulse 87 10/09/22 06:34 Resp 16 10/09/22 06:34 BP 133/80 10/09/22 06:34 Pulse Ox 97 10/09/22 06:34 O2 Del Method 10/09/22 06:34 BMI result Body Mass Index 47.9 DS: Data Data Completed and Pending Pending studies at discharge: Pending at discharge 10/09/22 09:16 Surgical [PTH] Routine Labs on day of discharge: Laboratory Results - last 24 hr 10/08/22 15:05 COVID-19 ([facility]) Negative COVID-19 Clin Com See Note Discharge Plan Discharge Anticipated Discharge Date/Time: 10/10/22 10:00 Patient Disposition: Home, Self-Care Discharge Diagnosis: s/p laparoscopic sleeve gastrectomy Referrals: Ana Funk MD [Primary Care Provider] - 1 Week Discharge Medications: Continued losartan 25 mg tablet 25 mg PO DAILY pantoprazole 40 mg tablet,delayed release (DR/EC) 40 mg PO DAILY Qty: 30 2RF sucralfate 100 mg/mL suspension 10 ml PO BID Qty: 400 2RF ondansetron HCl 4 mg tablet 4 mg PO Q12H Qty: 20 0RF pregabalin 75 mg capsule 75 mg PO BID amlodipine 10 mg tablet 10 mg PO DAILY albuterol sulfate 2.5 mg /3 mL (0.083 %) solution for nebulization 2.5 mg inhalation Q4H PRN (Reason: Wheezing) albuterol sulfate 90 mcg/actuation HFA aerosol inhaler 2 puff inhalation Q4H PRN (Reason: Wheezing) duloxetine 30 mg capsule,delayed release(DR/EC) 30 mg PO TID Held tramadol 50 mg tablet 50 mg PO DAILY PRN (Reason: Pain) Hold Instructions: until discussed with Dr Cortés No Action fluticasone propionate 50 mcg/actuation spray,suspension 1 spray intranasal BID PRN (Reason: Allergy Symptoms) Activity on Discharge: No heavy lifting Stand Alone Forms: Patient Portal Discharge page Care Plan Goals: weight loss Health Concerns: morbid obesity Plan of Treatment: No tub baths, sex or returning to work until discussed at first post op appoin tment. No exercise, alcohol, tobacco or illegal drug use. Continue to use incentive spirometer hourly while awake. Walk in home for 5- 10 minutes every 2 hours during the first week. Follow all instructions in the bariatric handbook and call with any questions.Discharge Instructions 1. Please call your doctor or come back to the emergency room should any new symptoms arise. 2. You will receive a courtesy call from [facility] 24-48 hours after discharge. 3. Activity: abstain from alcohol, practice limited stair climbing, no bending, no driving, no exercise, no illicit substances, no lifting, no sex, no tub bath, no work. 4. Diet: continue as discussed with Dr. Cancino. 5. Dressing Change/Wound Care: Your incision is covered by clear bandages and guaze underneath. If the area is tender, you may apply an ice pack for short intervals (no more than 20 minutes on, followed by at least 20 minutes off). Do not apply heat. Do not use creams, lotions, or topical antibiotics unless instructed to do so by your surgeon. These can cause infection or allergic reaction. 6. Call your doctor if: - Your temperature exceeds 101.5 F - You experience excessive pain or swelling - You have an unexpected reaction to medication - You have excessive bleeding - You experience continued vomiting/nausea - Your incision begins to separate - Your incision shows signs of infection such as increased redness, swelling, excessive pain, heat, or drainage (light blood or clear fluid is normal) 7. General instructions: No lifting greater than 5 lbs for the next 4 weeks[address] within 24 hours of taking narcotic pain medications. If you do not move your bowels in the next 2 days, please take milk of magnesia over the counter. Please follow the post op diet and do not advance your diet until you are seen in the office in about 2 weeks. Please walk around your home every hour or two to prevent blood clots from forming in your legs. You do not need to wake from sleeping to walk. Please sleep in a bed or couch to prevent kinking at the hips and knees. Please take your incentive spirometer (your lung clerical support specialist) home with you and use it for the next few days to prevent pneumonias. You may shower, no hot tubs, baths or swimming pools. Please call the office with any questions or concerns such as increasing abdominal pain, fever, chills, shortness of breath, chest pain, leg pain or swelling, or redness or drainage from your incisions. Please stay on stage 3 diet which includes sugar free clear liquids such as ice pops and jello and broth and crystal light. Avoid all carbonation. Please drink 3 protein shakes with at least 25-30 grams of protein daily or 3 of the Celebrate 4:1 shakes which can be purchased in our office. The Celebrate shakes have all of the bariatric vitamins you need if you consume these shakes. If you are drinking other protein shakes, you will need to purchase the Celebrate multivitamins and calcium that we provide in the office (they will provide all the vitamins you need). Please make sure you are consuming at least 40-60 ounces of water in addition to your 3 protein shakes daily. Do not hesitate to contact the office with any questions at . The patient's medical history has been reviewed and they are considered low risk for post op DVT and therefore DVT prophylaxis is not considered necessary. Travel after surgery was reviewed. The patient has not disclosed any travel plans during the first 30 days after surgery and they have been advised that within the first 30 days after surgery any bus, plane, train or car travel over 2 hours in duration is contraindicated due to the possibility of developing blood clots from immobility. Any travel, needs to include periods of ambulation of 10 minutes in duration every 2 hours.? The patient was instructed to discuss any plans for travel during this period with their bariatric surgeon. Assessment: stable s/p laparoscopic sleeve gastrectomy
[2022-10-09] MEDS: Famotidine/PF 20 MG/2 ML VIAL IVPUSH ×2 (10:38→19:39)
[2022-10-09 10:46] LABS: Hematocrit 42.7 % (37.0-47.0); Hemoglobin 13.9 g/dl (12.0-16.0)
[2022-10-09] MEDS: ondansetron HCL 4 MG/2 ML VIAL IVPUSH ×2 (10:54→21:11)
[2022-10-09] MEDS: Metoclopramide HCl 10 MG/2 ML VIAL IVPUSH (10:56)
[2022-10-09 11:04] LABS: Anion Gap 15 (12-20); Blood Urea Nitrogen 13 mg/dL (9-16); Calcium 8.8 mg/dL (8.4-10.2); Carbon Dioxide 19 mmol/L (22-29); Chloride 105 mmol/L (96-108); Creatinine Clr Calc Pharmacy 118.5; Estimated Glomerular Filt Rate > 60; Glucose Random 128 mg/dL (60-115); Potassium 4.1 mmol/L (3.3-5.1); Sodium 135 mmol/L (135-145)
[2022-10-09] MEDS: Lactated Ringers 1,000 ML 150 ML IVCONT ×3 (11:05→23:41)
[2022-10-09] MEDS: ceFAZolin Sodium/Dextrose,Iso 2 GM/50 ML PIGGYBACK IV (14:04)
[2022-10-09] MEDS: Acetaminophen 1,000 MG/100 ML PIGGYBACK 16.7 MG IV ×2 (14:50→19:39)
--- NOTE | 2022-10-09 15:20 | PHA.MEDREC ---
Pharmacy Consult ? Medication Reconciliation Pharmacy has completed the medication reconciliation.
[2022-10-09] MEDS: DULoxetine HCl 30 MG CAPSULE.DR PO (19:39)
[2022-10-09] MEDS: 0.9 % Sodium Chloride Flush 3 ML SYRINGE IVFLUSH (19:39)
[2022-10-10] MEDS: Acetaminophen 1,000 MG/100 ML PIGGYBACK 16.7 MG IV ×2 (01:27→08:01)
[2022-10-10 03:28] VITALS: BP 127/56; PULSE 73; RESP 17; TEMP 36.9; O2SAT 92
[2022-10-10] MEDS: Lactated Ringers 1,000 ML 150 ML IVCONT (05:37)
[2022-10-10] MEDS: ondansetron HCL 4 MG/2 ML VIAL IVPUSH (05:37)
[2022-10-10 06:06] LABS: MANUAL DIFF FLAG NO
[2022-10-10 06:20] LABS: Basophils Percent Auto 0.1 % (0-2); Hematocrit 38.2 % (37.0-47.0); Hemoglobin 12.5 g/dl (12.0-16.0); Imm Gran Abs Auto 0.03 X10*3/uL (0.00-0.03); Imm Gran Pct Auto 0.4 % (0.0-0.4); Lymphocytes Absolute Auto 0.8 X10*3/uL (1.2-4.9); Lymphocytes Percent Auto 11.9 % (20-40); Mean Corpuscular HGB Conc 32.7 g/dl (31.0-35.0); Mean Corpuscular Hemoglobin 28.2 pg (27.0-33.0); Mean Platelet Volume 11.5 fL (9.4-12.3); Monocytes Absolute Auto 0.5 X10*3/uL (0.1-1.2); Neutrophils Absolute Auto 5.5 x10*3/uL (2.0-8.3); Neutrophils Percent Auto 80.6 % (45-73); Platelet Count 202 X10*3/uL (160-400); Red Blood Count 4.44 X10*6/uL (4.20-5.50); Red Cell Distribution Width 13.7 % (11.0-16.0); White Blood Count 6.9 X10*3/uL (4.8-10.8)
[2022-10-10 06:31] LABS: Anion Gap 15 (12-20); Blood Urea Nitrogen 8 mg/dL (9-16); Calcium 8.8 mg/dL (8.4-10.2); Carbon Dioxide 23 mmol/L (22-29); Chloride 106 mmol/L (96-108); Creatinine Clr Calc Pharmacy 149.1; Estimated Glomerular Filt Rate > 60; Glucose Random 104 mg/dL (60-115); Potassium 4.3 mmol/L (3.3-5.1); Sodium 140 mmol/L (135-145)
[2022-10-10 07:59] VITALS: BP 154/71; PULSE 70; RESP 18; TEMP 37.3; O2SAT 97
[2022-10-10] MEDS: Famotidine/PF 20 MG/2 ML VIAL IVPUSH (08:00)
[2022-10-10] MEDS: amLODIPine Besylate 10 MG TABLET PO (08:01)
[2022-10-10] MEDS: Losartan Potassium 25 MG TABLET PO (08:01)
[2022-10-10] MEDS: DULoxetine HCl 30 MG CAPSULE.DR PO (08:01)
--- NOTE | 2022-10-10 09:39 | MHC.CM.PN ---
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 PT WILL D/C TODAY W/NO NEW SERVICES. PFIZER X3, PCP SATISH JAMESON AND PT EDUCATED ON AND DECLINES TO COMPLETE A HCP W/CM. D/C TODAY W/RESUMP OF AUXILIARY PLANT OPERATOR AND AUXILIARY PLANT OPERATOR FOR TRANSPORT
--- NOTE | 2022-10-10 15:27 | HO.POSTANES ---
Post Anesthesia Evaluation Post Anesthesia Evaluation Vital Signs: Vital Signs Temp Pulse Resp BP Pulse Ox O2 Del Method 10/10/22 07:59 99.2 F 70 18 154/71 H 97 Room Air 10/10/22 03:28 98.4 F 73 17 127/56 L 92 Room Air Anesthesia: General Endotracheal-GETA Mental Status: Awake Pain Control: Satisfactory Nausea/Vomiting: None Hydration: Adequate Anesthesia-Related Issues: No Anes. Related Issues
== END 2022-10-10 10:53 | disposition home or self-care (01) | DRG 621 ==
LOC: HO.SSSA 10:21 → HO.S3 13:36
PROVIDERS: Physician Assistant Surgical; Admitting Provider Surgery; PCP Internal Medicine; Visit Provider Surgery
PROC: 0DB64Z3 Excision of Stomach, Percutaneous Endoscopic Approach, Vertical (ICD-10-PCS; CPT 43845; principal; 2022-10-09 07:30)
DX: E66.01 Morbid (severe) obesity due to excess calories (principal); J45.909 Unspecified asthma, uncomplicated; M19.90 Unspecified osteoarthritis, unspecified site; F41.9 Anxiety disorder, unspecified; K74.00 Hepatic fibrosis, unspecified; F32.A Depression, unspecified; I10 Essential (primary) hypertension; Z20.822 Contact with and (suspected) exposure to COVID-19; Z68.43 Body mass index [BMI] 50.0-59.9, adult; Z79.51 Long term (current) use of inhaled steroids; Z79.899 Other long term (current) drug therapy
CPT/HCPCS: 36415; 80048; 80053; 80061; 83036; 83525; 84443; 85014; 85018; 85025; 85610; 85730; 86140; 86850; 86900; 86901; 87635; 88307; 88342; A4649; C9088; J0131; J0690; J1100; J1170; J2250; J2370; J2405; J2550; J2765; J2795; J3010

== ENCOUNTER → 2022-10-14 13:08 | Outpatient (BNVA) | payer OTHER, SELFPAY | PROVIDERS: Visit Provider Physician Assistant Surgical | DX: Z13.89 Encounter for screening for other disorder (principal) ==

== ENCOUNTER → 2022-11-05 14:44 | Outpatient (BNVA) | payer OTHER, SELFPAY | PROVIDERS: Visit Provider Dietitian, Registered | DX: E66.01 Morbid (severe) obesity due to excess calories (principal); Z68.42 Body mass index [BMI] 45.0-49.9, adult | CPT/HCPCS: 97803 ==

== ENCOUNTER → 2022-11-12 14:40 | Outpatient (BNVA) | payer OTHER, SELFPAY | PROVIDERS: Visit Provider Dietitian, Registered | DX: E66.01 Morbid (severe) obesity due to excess calories (principal) | CPT/HCPCS: 97803 ==

== ENCOUNTER → 2022-11-20 15:54 | Outpatient (BNVA) | payer OTHER, SELFPAY | PROVIDERS: PCP Internal Medicine; Visit Provider Physician Assistant | DX: Z13.89 Encounter for screening for other disorder (principal) ==

== ENCOUNTER → 2022-11-27 16:00 | Outpatient (BNVA) | payer OTHER, SELFPAY | PROVIDERS: PCP Internal Medicine; Visit Provider Counselor Mental Health ==

== ENCOUNTER → 2022-11-27 16:00 | Outpatient (BNVA) | payer OTHER, SELFPAY | PROVIDERS: PCP Internal Medicine; Visit Provider Counselor Mental Health | DX: Z13.89 Encounter for screening for other disorder (principal) ==

== ENCOUNTER → 2022-12-08 16:16 | Outpatient (BNVA) | payer OTHER, SELFPAY | PROVIDERS: PCP Internal Medicine; Visit Provider Physician Assistant | DX: Z13.89 Encounter for screening for other disorder (principal) ==

== ENCOUNTER → 2023-01-09 13:30 | Outpatient (BNVA) | payer OTHER, SELFPAY | PROVIDERS: PCP Internal Medicine; Visit Provider Physician Assistant | DX: E66.9 Obesity, unspecified (principal); Z68.41 Body mass index [BMI] 40.0-44.9, adult | CPT/HCPCS: Q3014 ==

== ENCOUNTER 2023-04-16 15:00 | Outpatient (AMB) | payer OTHER, SELFPAY ==
--- NOTE | 2023-04-16 13:54 | MHC.OFFVISWM ---
Intake VS Expanded 04/16/23 15:07 Height 5 ft 8 in Weight 260 lb BMI 39.5 Intake Visit Reasons: VIDEO PO LSG 10/09/22 Allergies No Known Allergies Allergy (Verified 11/20/22 16:10) Medication List - Last Reconciled 04/16/23 by Jessica Dhaliwal PA-C albuterol sulfate 2.5 mg inhalation Q4H PRN albuterol sulfate 90 mcg/actuation 2 puffs inhalation Q4H PRN amlodipine 10 mg PO DAILY aripiprazole 2 mg PO DAILY fluticasone propionate 50 mcg/actuation 1 spray intranasal BID PRN hydroxyzine HCl 25 mg PO BID PRN syavipesojwj-hir-ugmw-FA-vit K 45 mg iron- 800 mcg-120 mcg (Bariatric Multivitamins) caps PO tramadol 50 mg PO DAILY PRN HPI HPI Comments History of Present Illness Details Pt is now 6 months s/p LSG. 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 Last seen at 3 months 01/29. Some times feels nausea. Skips meals when depressed, now meds changes and feels better. Has gas pain but no reflux. Does not eat and drink at the same time. drinks shake in 20 minutes meal plan: 2 scrambled or boiled egg an orange 2p - shake - 30 grams bar 5pm - 1,5 oz salad and 1. 5 meat yogurt after dinner Walks x 10 - 15 minutes, 3d/ week. Post op complications: none RIGO:never DM: never HTN: still on meds Hyperlipidemia: never GERD: 0 Satisfaction with present condition - satisfied [facility] Medical History Anxiety Arthritis Asthma Depression DJD (degenerative joint disease) Hypertension Morbid obesity Surgical History Hx of tubal ligation Family History Mother No problems noted. Father No problems noted. Sister No problems noted. Sister No problems noted. Sister No problems noted. Sister No problems noted. Sister Asthma Son No problems noted. Son No problems noted. Son No problems noted. Son No problems noted. 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 I think she woudl benefit from an appt with Kim, next month. I told her to drink her shakes over 1 hour, meals are taking her 20 minutes now. Exercise - we decided to have her start LS 1 mile videos every day - once easy increase to 2 miles. I have asked her to text me every week or tow wit her weights and for help with exercise. Next appt Kim in one month and me in 2 months. Post op labs ordered. Patient is still obese and is not considered stable at this time. I spent 26 minutes in total speaking with the patient via video conference counseling , reviewing records and charting in patients chart. . (2) S/P laparoscopic sleeve gastrectomy: Code(s): Z98.84 - Bariatric surgery status Orders: Orders Vitamin B12 and Folate Today E66.9 - Obesity, unspecified, Z98.84 - Bariatric surgery status Comprehensive Met. Panel Today E66.9 - Obesity, unspecified, Z98.84 - Bariatric surgery status C Reactive Protein Today E66.9 - Obesity, unspecified, Z98.84 - Bariatric surgery status Ferritin Today E66.9 - Obesity, unspecified, Z98.84 - Bariatric surgery status Hemoglobin A1c Today E66.9 - Obesity, unspecified, Z98.84 - Bariatric surgery status Insulin Today E66.9 - Obesity, unspecified, Z98.84 - Bariatric surgery status IRON PROFILE Today E66.9 - Obesity, unspecified, Z98.84 - Bariatric surgery status Lipid Panel Today E66.9 - Obesity, unspecified, Z98.84 - Bariatric surgery status PTHI Today E66.9 - Obesity, unspecified, Z98.84 - Bariatric surgery status TSH reflex Free T4 Today E66.9 - Obesity, unspecified, Z98.84 - Bariatric surgery status Vitamin A Today E66.9 - Obesity, unspecified, Z98.84 - Bariatric surgery status Vitamin B1 Today E66.9 - Obesity, unspecified, Z98.84 - Bariatric surgery status Vitamin D 25-OH Total Today E66.9 - Obesity, unspecified, Z98.84 - Bariatric surgery status Zinc Today E66.9 - Obesity, unspecified, Z98.84 - Bariatric surgery status Complete Blood Count Auto Diff Today E66.9 - Obesity, unspecified, Z98.84 - Bariatric surgery status Referrals Behavioral Health Referral E66.9 - Obesity, unspecified, Z98.84 - Bariatric surgery status Nutrition/Dietitian Referral E66.9 - Obesity, unspecified, Z98.84 - Bariatric surgery status Telehealth Telehealth Location of provider rendering services: practice address Location of patient: address on file Patient Identification confirmed using: Name, : Yes Telehealth method: video Patient verbally consented to treatment: Yes Patient verbally consented to billing insurance company: Yes Patient informed of any privacy concerns related to visit: Yes Coding Level of Care Code Tele Est Pt Level 4 (34393) Diagnoses Obesity E66.9 S/P laparoscopic sleeve gastrectomy Z98.84
[2023-04-16 15:07] VITALS: BMI 39.5
== END 2023-04-16 15:30 | disposition home or self-care (01) ==
LOC: HO.HBS 16:09
PROVIDERS: PCP Internal Medicine; Visit Provider Physician Assistant
DX: E66.9 Obesity, unspecified (principal); Z68.39 Body mass index [BMI] 39.0-39.9, adult; Z90.3 Acquired absence of stomach [part of]; Z98.84 Bariatric surgery status
CPT/HCPCS: 99214

== ENCOUNTER → 2023-04-16 15:00 | Outpatient (BNVA) | payer OTHER, SELFPAY | PROVIDERS: PCP Internal Medicine; Visit Provider Physician Assistant | DX: E66.9 Obesity, unspecified (principal); Z98.84 Bariatric surgery status; Z3A.39 39 weeks gestation of pregnancy | CPT/HCPCS: Q3014 ==

== ENCOUNTER 2023-05-11 15:36 | Outpatient (AMB) | payer OTHER, SELFPAY ==
--- NOTE | 2023-05-11 15:23 | MHC.AMNUTRGE ---
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 is getting very bored. She also wants to know which premade shakes and powders are OK. Sometimes suffers from moments of depression and doesn't like to eat. Would like to do shakes during these times. Dietary counseling reduction Diagnosis Nutrition problem #1 overweight/obesity As related to (etiology) #1 excess energy intake and physical inactivity As evidenced by (sign/symptom) #1 high BMI Monitoring/Goals Nutrition problem monitoring total energy intake, level of knowledge/skill, total PRO intake, total CHO intake and weight Outcome progress progressing Learning/Education Readiness to learn good Stages of change action Educational materials provided Yes Most Recent Diabetes Results: No Data to Display [facility] Medical History Anxiety Arthritis Asthma Depression DJD (degenerative joint disease) Hypertension Morbid obesity Surgical History Hx of tubal ligation Family History Mother No problems noted. Father No problems noted. Sister No problems noted. Sister No problems noted. Sister No problems noted. Sister No problems noted. Sister Asthma Son No problems noted. Son No problems noted. Son No problems noted. Son No problems noted. 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 recommended protein shakes either POTATOSOFT power elite or using premier powder in fairlife milk for days she doesn't want to eat. continue follow ups as scheduled and encouraged communication as needed - pt welcome to schedule follow ups as desired Telehealth Telehealth Location of provider rendering services: practice address Location of patient: address on file Patient Identification confirmed using: Name, : Yes Telehealth method: video Patient verbally consented to treatment: Yes Patient verbally consented to billing insurance company: Yes Patient informed of any privacy concerns related to visit: Yes Minutes spent on Phone/Video with Pt.: 30 Coding Level of Care Code Nutr Indiv Subseq (68525) Diagnoses Obesity (BMI 30-39.9) E66.9 Time Spent (min) 30
== END 2023-05-11 15:46 | disposition home or self-care (01) ==
LOC: HO.HBS 15:36
PROVIDERS: PCP Internal Medicine; Visit Provider Dietitian, Registered
DX: E66.9 Obesity, unspecified (principal)

== ENCOUNTER → 2023-05-11 15:36 | Outpatient (BNVA) | payer OTHER, SELFPAY | PROVIDERS: PCP Internal Medicine; Visit Provider Dietitian, Registered | DX: E66.9 Obesity, unspecified (principal); Z98.84 Bariatric surgery status; Z71.3 Dietary counseling and surveillance | CPT/HCPCS: 97803 ==

== ENCOUNTER → 2023-08-14 14:52 | Outpatient (BNVA) | payer OTHER, SELFPAY | PROVIDERS: PCP Internal Medicine; Visit Provider Dietitian, Registered | DX: E66.9 Obesity, unspecified (principal); Z68.38 Body mass index [BMI] 38.0-38.9, adult | CPT/HCPCS: 97803 ==

== ENCOUNTER 2023-08-17 14:15 | Outpatient (AMB) | payer OTHER, SELFPAY ==
--- NOTE | 2023-08-17 14:15 | A.OFFVIS_ITS ---
Intake VS Expanded 08/17/23 14:23 Height 5 ft 8 in Weight 250 lb BMI 38.0 Intake Visit Reasons: VIDEO PO LSG 10/09/22 Allergies No Known Allergies Allergy (Verified 11/20/22 16:10) Medication List - Last Reconciled 08/17/23 by Jessica Dhaliwal PA-C albuterol sulfate 2.5 mg inhalation Q4H PRN albuterol sulfate 90 mcg/actuation 2 puffs inhalation Q4H PRN amlodipine 10 mg PO DAILY aripiprazole 2 mg PO DAILY fluticasone propionate 50 mcg/actuation 1 spray intranasal BID PRN hydroxyzine HCl 25 mg PO BID PRN xspicyzjddyl-rgy-mcte-FA-vit K 45 mg iron- 800 mcg-120 mcg (Bariatric Multivitamins) caps PO tramadol 50 mg PO DAILY PRN HPI HPI Comments 2 History of Present Illness Details Pt is now 10 months s/p LSG. 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 She had an appt with Kim a few days ago and meal plan was changed to: 80-90g protein goal minimum, wakes at di fferent times per day 2 hours after waking up - protein shake premier premade OR premier powder 1 serving with 8oz liquid 4 hours later - protein bar 4 hours later - meal - 2-3oz protein and veg 4 hours later - protein bar, or shake, g reek yogurt or cottage cheese She is doing following 1- protein shake Premier 2 - 3 hours later has raw vegetables and chicken - is not measuring her portion - small plate 3 -3 hours later-protein bar 4 - yogurt or cottage 5 oz Walks outside - 3/ week for 10 minutes only due to pain. Did not get her 6 months labs doen yet. [facility] Medical History Anxiety Arthritis Asthma Depression DJD (degenerative joint disease) Hypertension Morbid obesity Surgical History Hx of tubal ligation Family History Mother No problems noted. Father No problems noted. Sister No problems noted. Sister No problems noted. Sister No problems noted. Sister No problems noted. Sister Asthma Son No problems noted. Son No problems noted. Son No problems noted. Son No problems noted. 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 She states she feels much better though now and only uses her HTN meds if her SBP is over 135. She will continue with her meal plan made by Kim - but will measure her food sin 6 forks each of protein and vegetables. Exercise - I am encouraging her to restart LS 1 mile videos daily. I have encouraged her to text me her weekly weights, expecting at least 1 lb per week, and any questions that she has. Will get her labs drawn tomorrow. Next appt with me in 2 months Patient is still obese and is not considered stable at this time. I spent 27 minutes in total speaking with the patient via telephone conference counseling , reviewing records and charting in patients chart. . (2) S/P laparoscopic sleeve gastrectomy: Code(s): Z98.84 - Bariatric surgery status (3) Fibromyalgia: Code(s): M79.7 - Fibromyalgia Telehealth Telehealth Location of provider rendering services: practice address Location of patient: address on file Patient Identification confirmed using: Name, : Yes Telehealth method: voice only Patient verbally consented to treatment: Yes Patient verbally consented to billing insurance company: Yes Patient informed of any privacy concerns related to visit: Yes Coding Level of Care Code Tele Est Pt Level 4 (44001) Diagnoses Obesity E66.9 S/P laparoscopic sleeve gastrectomy Z98.84 Fibromyalgia M79.7
[2023-08-17 14:23] VITALS: BMI 38.0
== END 2023-08-17 14:30 | disposition home or self-care (01) ==
LOC: HO.HBS 14:43
PROVIDERS: PCP Internal Medicine; Visit Provider Physician Assistant
DX: E66.9 Obesity, unspecified (principal); Z98.84 Bariatric surgery status; M79.7 Fibromyalgia
CPT/HCPCS: 99443

== ENCOUNTER → 2023-08-17 14:15 | Outpatient (BNVA) | payer OTHER, SELFPAY | PROVIDERS: PCP Internal Medicine; Visit Provider Physician Assistant | DX: E66.9 Obesity, unspecified (principal); Z98.84 Bariatric surgery status; M79.7 Fibromyalgia ==

== ENCOUNTER 2023-08-21 09:22 | Outpatient (REF) | payer OTHER, SELFPAY ==
[2023-08-21 09:43] LABS: MANUAL DIFF FLAG NO
[2023-08-21 10:23] LABS: Basophils Percent Auto 0.5 % (0-2); Eosinophils Absolute Auto 0.1 X10*3/uL (0.0-0.4); Eosinophils Percent Auto 1.4 % (0-4); Hematocrit 46.2 % (37.0-47.0); Imm Gran Abs Auto 0.01 X10*3/uL (0.00-0.03); Imm Gran Pct Auto 0.2 % (0.0-0.4); Lymphocytes Absolute Auto 1.5 X10*3/uL (1.2-4.9); Lymphocytes Percent Auto 33.9 % (20-40); Mean Corpuscular HGB Conc 32.5 g/dl (31.0-35.0); Mean Corpuscular Hemoglobin 29.2 pg (27.0-33.0); Mean Corpuscular Volume 89.9 fL (80.0-98.0); Mean Platelet Volume 10.9 fL (9.4-12.3); Monocytes Absolute Auto 0.3 X10*3/uL (0.1-1.2); Monocytes Percent Auto 7.8 % (2-11); Neutrophils Absolute Auto 2.4 x10*3/uL (2.0-8.3); Neutrophils Percent Auto 56.2 % (45-73); Platelet Count 247 X10*3/uL (160-400); Red Blood Count 5.14 X10*6/uL (4.20-5.50); Red Cell Distribution Width 13.4 % (11.0-16.0); White Blood Count 4.3 X10*3/uL (4.8-10.8)
[2023-08-21 10:39] LABS: Estimated Average Glucose 94 mg/dL; Hemoglobin A1c % 4.9 % (<6.0)
[2023-08-21 10:59] LABS: Anion Gap 10 (12-20)
[2023-08-21 11:32] LABS: Folate 13.9 ng/mL (> or = 4.0); Vitamin B12 427 pg/mL (200-900)
[2023-08-21 11:40] LABS: Alanine Aminotransferase 12 U/L (0-31); Albumin Level 3.8 g/dL (3.5-5.0); Alkaline Phosphatase 101 U/L (39-117); Aspartate Amino Transferase 15 U/L (5-31); Bilirubin Total 0.5 mg/dL (0.0-1.0); Blood Urea Nitrogen 14 mg/dL (9-16); C Reactive Protein 0.79 mg/dL (< or = 0.50); Calcium 9.4 mg/dL (8.4-10.2); Carbon Dioxide 27 mmol/L (22-29); Chloride 103 mmol/L (96-108); Cholesterol 235 mg/dL (<200); Estimated Glomerular Filt Rate > 60; Glucose Random 78 mg/dL (60-115); HDL Cholesterol 55 mg/dL (>40); Iron 111 mcg/dL (30-160); LDL Cholesterol Calculated 167 mg/dL (<100); Percent Iron Saturation 37 % (15-50); Potassium 4.5 mmol/L (3.3-5.1); Sodium 137 mmol/L (135-145); Total Iron Binding Capacity 303 mcg/dL (228-428); Total Protein 7.2 g/dL (6.5-8.0); Triglycerides 67 mg/dL (<150); Unsaturated Iron Binding 192 ug/dL
[2023-08-21 11:51] LABS: Ferritin 266 ng/mL (10-250); Insulin 6 uU/mL (2-29); Vitamin D 25-OH Total 55.2 ng/mL (>30)
[2023-08-24 11:53] LABS: Calcium (PTHI) 9.3 mg/dL (8.6-10.4); PTHI 65 pg/mL (16-77)
[2023-08-25 00:52] LABS: Zinc 78 mcg/dL (60-130)
[2023-08-25 17:03] LABS: Vitamin A 45 mcg/dL (38-98)
[2023-08-28 14:04] LABS: Vitamin B1 9 nmol/L (8-30)
== END 2023-08-21 09:23 | disposition home or self-care (01) ==
LOC: HO.LAB 09:22
PROVIDERS: PCP Internal Medicine; Visit Provider Physician Assistant
DX: E66.9 Obesity, unspecified (principal); Z98.84 Bariatric surgery status
CPT/HCPCS: 36415; 80053; 80061; 82306; 82607; 82728; 82746; 83036; 83525; 83540; 83970; 84425; 84443; 84590; 84630; 85025; 86140

== ENCOUNTER 2023-10-12 14:33 | Outpatient (AMB) | payer OTHER, SELFPAY ==
--- NOTE | 2023-10-12 14:07 | MHC.OFFVISWM ---
Intake VS Expanded 10/12/23 14:09 Height 5 ft 8 in Weight 250 lb BMI 38.0 Intake Visit Reasons: VIDEO PO LSG 10/09/22 Allergies No Known Allergies Allergy (Verified 11/20/22 16:10) Medication List - Last Reconciled 10/12/23 by Jessica Dhaliwal PA-C albuterol sulfate 2.5 mg inhalation Q4H PRN albuterol sulfate 90 mcg/actuation 2 puffs inhalation Q4H PRN amlodipine 10 mg PO DAILY aripiprazole 2 mg PO DAILY fluticasone propionate 50 mcg/actuation 1 spray intranasal BID PRN hydroxyzine HCl 25 mg PO BID PRN smkraqxkgler-gnb-awvu-FA-vit K 45 mg iron- 800 mcg-120 mcg (Bariatric Multivitamins) caps PO pravastatin 10 mg PO DAILY tramadol 50 mg PO DAILY PRN HPI HPI Comments History of Present Illness Details Pt is now 1 year s/p LSG. 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 Goal weight is 200 lbs She had her 6 month labs done Aug 2023, all normal except for elevated cholesterol. Discussed with PCP - and it has lowered. Meal plan - patient has always struggled with following our meal and exercise instructions. Needs 90 grams protein per day - not counting or measuring 10 - 11 am Breakfast - 2 eggs with ham and cheese. coffee with sugar free creamer 2 -3 hours later - has half can tuna with salad - not measured afternoon snack - bar or rice cakes or yogurt 4pm - chicken or other protein, rice and salad yogurt later in the day Exercise - 3d/ week - 20 minutes Post op complications: none RIGO: never DM: never HTN: resolved Hyperlipidemia: imroved on meds GERD: 0 Satisfaction with present condition - satisfied [facility] Medical History Anxiety Arthritis Asthma Depression DJD (degenerative joint disease) Hypertension Morbid obesity Surgical History Hx of tubal ligation Family History Mother No problems noted. Father No problems noted. Sister No problems noted. Sister No problems noted. Sister No problems noted. Sister No problems noted. Sister Asthma Son No problems noted. Son No problems noted. Son No problems noted. Son No problems noted. 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 Will discuss recipe ideas with Kim,- told me she skips meals often. Exercise - told her to tory to walk evry day day - if can not walk for 20 minutes at a time (fibromyalgia) then do two 15 minute walks sor three 10 minutes per day. But needs to changes something or she will not have any further weight loss. Chelo 2 months, me 6 months. Patient is still morbidly obese and is not considered stable at this time. I spent 30 minutes in total speaking with the patient via video conference counseling , reviewing records and charting in patients chart. . (2) S/P laparoscopic sleeve gastrectomy: Code(s): Z98.84 - Bariatric surgery status Plan: see above Telehealth Telehealth Location of provider rendering services: practice address Location of patient: address on file Patient Identification confirmed using: Name, : Yes Telehealth method: video Patient verbally consented to treatment: Yes Patient verbally consented to billing insurance company: Yes Patient informed of any privacy concerns related to visit: Yes Coding Level of Care Code Tele Est Pt Level 4 (08404) Diagnoses Obesity E66.9 S/P laparoscopic sleeve gastrectomy Z98.84
[2023-10-12 14:09] VITALS: BMI 38.0
== END 2023-10-12 14:33 | disposition home or self-care (01) ==
LOC: HO.HBS 14:33
PROVIDERS: PCP Internal Medicine; Visit Provider Physician Assistant
DX: E66.9 Obesity, unspecified (principal); Z98.84 Bariatric surgery status; Z90.3 Acquired absence of stomach [part of]; Z68.38 Body mass index [BMI] 38.0-38.9, adult
CPT/HCPCS: 99214

== ENCOUNTER → 2023-10-12 14:33 | Outpatient (BNVA) | payer OTHER, SELFPAY | PROVIDERS: PCP Internal Medicine; Visit Provider Physician Assistant | DX: E66.9 Obesity, unspecified (principal); Z98.84 Bariatric surgery status; M79.7 Fibromyalgia ==

== ENCOUNTER 2024-05-04 13:10 | Outpatient (AMB) | payer OTHER, SELFPAY ==
--- NOTE | 2024-05-04 12:59 | A.OFFVIS_ITS ---
VS Expanded 05/04/24 13:05 Height 5 ft 8 in Weight 247 lb BMI 37.6 Intake Visit Reasons: (TV) PO LSG 10/09/22 Allergies No Known Allergies Allergy (Verified 11/20/22 16:10) Medication List - Last Reconciled 05/04/24 by MICK Hopkins albuterol sulfate 2.5 mg inhalation Q4H PRN albuterol sulfate 90 mcg/actuation 2 puffs inhalation Q4H PRN amlodipine 10 mg PO DAILY aripiprazole 2 mg PO DAILY fluticasone propionate 50 mcg/actuation 1 spray intranasal BID PRN hydroxyzine HCl 25 mg PO BID PRN ouqsgepucdtn-cjy-okgv-FA-vit K 45 mg iron- 800 mcg-120 mcg (Bariatric Multivitamins) caps PO pravastatin 10 mg PO DAILY tramadol 50 mg PO DAILY PRN HPI Comments Details: This?is a?58?yo female who is s/p LSG 10/09/2022. Presents for 18 month post op visit. Weight at last visit on 10/12/2023 was 250 pounds with a BMI of 38, weight today is 247 pounds, representing a 3 pound weight loss with a BMI today of 37.6.? Pt reports difficulty sleeping, had just woken up for our 1pm appointment. Reports some gas pain. Present meal plan includes: Needs 90 grams protein per day wakes at 3pm, sleeps at 10pm (tries to sleep but doesn't fall asleep until later) 10 - 11 am Breakfast - 2 eggs with ham and cheese. coffee with sugar free creamer 2 -3 hours later - has half can tuna with salad - not measured afternoon snack - bar or rice cakes or yogurt 4pm - chicken or other protein, rice and salad yogurt later in the day Exercise - likes to walk but has knee pain, 3-4 days per week PFSH Medical History Anxiety Arthritis Asthma Depression DJD (degenerative joint disease) Hypertension Morbid obesity Surgical History Hx of tubal ligation Family History Mother No problems noted. Father No problems noted. Sister No problems noted. Sister No problems noted. Sister No problems noted. Sister No problems noted. Sister Asthma Son No problems noted. Son No problems noted. Son No problems noted. Son No problems noted. 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) Alcohol intake: never Patient Tobacco Use Status: Never used Tobacco service: No Current occupational status: disabled Telehealth Telehealth Telehealth Platform: Telephone Location of provider rendering services: practice address Location of patient: address on file Patient Identification confirmed using: Name, : Yes Telehealth method: voice only Patient verbally consented to treatment: Yes Patient verbally consented to billing insurance company: Yes Patient informed of any privacy concerns related to visit: Yes Minutes spent on Phone/Video with Pt.: 15 Assessment & Plan Assessment & Plan (1) Obesity: Code(s): E66.9 - Obesity, unspecified Category: Medical (2) S/P laparoscopic sleeve gastrectomy: Code(s): Z98.84 - Bariatric surgery status Category: Surgical Plan Pt not getting enough protein currently. Agreeable to a plan with 1 Premier shake with 2 scoops, 2 Isopure drinks with 1 scoop, one small meal with 4 forks protein (could be kazakh yogurt, various meats/fish, eggs). Labs ordered. Simethicone ordered. RTC 6 months. Meal plan texted to pt and encouraged her to reach out between appointments with any concerns. I spent a total of 30 minutes reviewing/updating records, examining the patient and counseling the patient on weight management as detailed above. Orders: Orders Complete Blood Count Auto Diff Today Z98.84 - Bariatric surgery status IRON PROFILE Today Z98.84 - Bariatric surgery status Comprehensive Met. Panel Today Z98.84 - Bariatric surgery status Vitamin B12 and Folate Today Z98.84 - Bariatric surgery status Zinc Today Z98.84 - Bariatric surgery status Vitamin A Today Z98.84 - Bariatric surgery status TSH reflex Free T4 Today Z98.84 - Bariatric surgery status Ferritin Today Z98.84 - Bariatric surgery status Vitamin D 25-OH Total Today Z98.84 - Bariatric surgery status Insulin Today Z98.84 - Bariatric surgery status Hemoglobin A1c Today Z98.84 - Bariatric surgery status Lipid Panel Today Z98.84 - Bariatric surgery status C Reactive Protein Today Z98.84 - Bariatric surgery status Vitamin B1 Today Z98.84 - Bariatric surgery status Medications: New simethicone (Gas Relief (simethicone)) 80 mg PO BID-QID PRN 90 tabs 1RF abdominal distention
[2024-05-04 13:05] VITALS: BMI 37.6
== END 2024-05-04 13:21 | disposition home or self-care (01) ==
LOC: HO.HBS 13:10
PROVIDERS: PCP Internal Medicine; Visit Provider Physician Assistant Surgical
DX: E66.9 Obesity, unspecified (principal); Z68.37 Body mass index [BMI] 37.0-37.9, adult; Z90.3 Acquired absence of stomach [part of]; Z98.84 Bariatric surgery status
CPT/HCPCS: 99442

== ENCOUNTER → 2024-05-04 13:10 | Outpatient (BNVA) | payer OTHER, SELFPAY | PROVIDERS: PCP Internal Medicine; Visit Provider Physician Assistant Surgical ==

== ENCOUNTER 2024-08-25 10:57 | Outpatient (REF) | payer OTHER, SELFPAY ==
[2024-08-25 11:30] LABS: MANUAL DIFF FLAG NO
[2024-08-25 12:04] LABS: Basophils Percent Auto 0.5 % (0-2); Eosinophils Absolute Auto 0.1 X10*3/uL (0.0-0.4); Eosinophils Percent Auto 3.4 % (0-4); Hematocrit 43.3 % (37.0-47.0); Hemoglobin 14.3 g/dl (12.0-16.0); Lymphocytes Absolute Auto 1.4 X10*3/uL (1.2-4.9); Lymphocytes Percent Auto 34.5 % (20-40); Mean Corpuscular Hemoglobin 29.1 pg (27.0-33.0); Mean Platelet Volume 10.3 fL (9.4-12.3); Monocytes Absolute Auto 0.3 X10*3/uL (0.1-1.2); Neutrophils Absolute Auto 2.2 x10*3/uL (2.0-8.3); Neutrophils Percent Auto 53.6 % (45-73); Platelet Count 226 X10*3/uL (160-400); Red Blood Count 4.92 X10*6/uL (4.20-5.50); Red Cell Distribution Width 14.2 % (11.0-16.0); White Blood Count 4.1 X10*3/uL (4.8-10.8)
[2024-08-25 12:14] LABS: Estimated Average Glucose 94 mg/dL; Hemoglobin A1C 109.3915 umol/L; Hemoglobin A1c % 4.9 % (<6.0)
[2024-08-25 12:53] LABS: Alanine Aminotransferase 16 U/L (0-31); Albumin Level 3.9 g/dL (3.5-5.0); Alkaline Phosphatase 77 U/L (39-117); Anion Gap 13 (12-20); Aspartate Amino Transferase 19 U/L (5-31); Bilirubin Total 0.6 mg/dL (0.0-1.0); Blood Urea Nitrogen 16 mg/dL (9-16); C Reactive Protein 0.24 mg/dL (< or = 0.50); Carbon Dioxide 28 mmol/L (22-29); Chloride 103 mmol/L (96-108); Cholesterol 272 mg/dL (<200); Estimated Glomerular Filt Rate > 60; Glucose Random 81 mg/dL (60-115); HDL Cholesterol 62 mg/dL (>40); Iron 149 mcg/dL (30-160); LDL Cholesterol Calculated 191 mg/dL (<100); Percent Iron Saturation 52 % (15-50); Potassium 4.6 mmol/L (3.3-5.1); Sodium 139 mmol/L (135-145); Total Iron Binding Capacity 287 mcg/dL (228-428); Triglycerides 99 mg/dL (<150); Unsaturated Iron Binding 138 ug/dL
[2024-08-25 13:04] LABS: Ferritin 367 ng/mL (10-250); Vitamin D 25-OH Total 45.9 ng/mL (>30)
[2024-08-25 13:16] LABS: Folate 12.8 ng/mL (> or = 4.0); Vitamin B12 346 pg/mL (200-900)
[2024-08-25 13:23] LABS: Insulin 5 uU/mL (2-29)
[2024-08-30 02:53] LABS: Zinc 76 mcg/dL (60-130)
[2024-08-31 06:13] LABS: Vitamin B1 13 nmol/L (8-30)
[2024-09-01 06:38] LABS: Vitamin A 60 mcg/dL (38-98)
== END 2024-08-25 10:58 | disposition home or self-care (01) ==
LOC: HO.LAB 10:57
PROVIDERS: PCP Internal Medicine; Visit Provider Physician Assistant Surgical
DX: Z98.84 Bariatric surgery status (principal); Z13.1 Encounter for screening for diabetes mellitus
CPT/HCPCS: 36415; 80053; 80061; 82306; 82607; 82728; 82746; 83036; 83525; 83540; 84425; 84443; 84590; 84630; 85025; 86140

== ENCOUNTER 2024-10-31 11:28 | Outpatient (AMB) | payer OTHER, SELFPAY ==
--- NOTE | 2024-10-31 11:16 | A.OFFVIS_ITS ---
VS Expanded 10/31/24 11:19 Height 5 ft 8 in Weight 247 lb BMI 37.6 Intake Visit Reasons: TELEPHONE PO LSG 10/09/22 Allergies No Known Allergies Allergy (Verified 11/20/22 16:10) Medication List - Last Reconciled 10/31/24 by MICK Hopkins albuterol sulfate 2.5 mg inhalation Q4H PRN albuterol sulfate 90 mcg/actuation 2 puffs inhalation Q4H PRN amlodipine 10 mg PO DAILY aripiprazole 2 mg PO DAILY fluticasone propionate 50 mcg/actuation 1 spray intranasal BID PRN hydroxyzine HCl 25 mg PO BID PRN teostxnfpnfl-xvj-zvpd-FA-vit K 45 mg iron- 800 mcg-120 mcg (Bariatric Multivitamins) caps PO pravastatin 10 mg PO DAILY simethicone (Gas Relief (simethicone)) 80 mg PO BID-QID PRN tramadol 50 mg PO DAILY PRN HPI Comments Details: This?is a?59?yo female who is s/p LSG 10/09/2022. Presents for 2 year post op visit. Weight at last visit on 05/04/2024 was 247 pounds with a BMI of 37.6, weight today is same.? Pt has an irregular sleep schedule, does not feels hungry. Continues to get gas pain, simethicone did not help much. Reports her schedule as 10am waking up, gets into bed 10pm (but doesn't fall asleep right away). Dinner at 5pm. Present meal plan includes: 1 Premier shake with 2 scoops, 2 Isopure drinks with 1 scoop, one small meal with 4 forks protein (could be setswana yogurt, various meats/fish, eggs) -given at last appt -at dinner eats meat, chicken, salads, sometimes rice Exercise routine includes: Exercise - likes to walk but has knee pain, 3-4 days per week PFSH Medical History Anxiety Arthritis Asthma Depression DJD (degenerative joint disease) Hypertension Morbid obesity Surgical History Hx of tubal ligation Family History Mother No problems noted. Father No problems noted. Sister No problems noted. Sister No problems noted. Sister No problems noted. Sister No problems noted. Sister Asthma Son No problems noted. Son No problems noted. Son No problems noted. Son No problems noted. 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) Alcohol intake: never Patient Tobacco Use Status: Never used Tobacco service: No Current occupational status: disabled Physical Exam Vital Signs: BMI result Body Mass Index 37.6 Telehealth Telehealth Telehealth Platform: Telephone Location of provider rendering services: practice address Location of patient: address on file Patient Identification confirmed using: Name, : Yes Telehealth method: voice only Patient verbally consented to treatment: Yes Patient verbally consented to billing insurance company: Yes Patient informed of any privacy concerns related to visit: Yes Minutes spent on Phone/Video with Pt.: 15 Assessment & Plan Assessment & Plan (1) Obesity: Code(s): E66.9 - Obesity, unspecified Category: Medical (2) S/P laparoscopic sleeve gastrectomy: Code(s): Z98.84 - Bariatric surgery status Category: Surgical Plan 11am-1pm 2 scoops Premier 2-4pm 1 scoop Isopure 5pm 6f/6f 7-9pm 1 scoop Isopure Discussed eating/drinking slowly, making drinks last 2 hours. Sent photo of healthy foods list via text and encouraged pt to reach out to me via text with any questions. RTC 3-4 months. I spent a total of 30 minutes reviewing/updating records, examining the patient and counseling the patient on weight management as detailed above.
[2024-10-31 11:19] VITALS: BMI 37.6
--- OUTSIDE RECORDS SUMMARY | 2024-10-31 16:20 | XMS_ITS | Continuity of Care Document ---
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 Name Role Phone Darvin Choi MD, Ana Primary Care Physician Encounter [facility] Date(s): 09/08/24 - 10/08/24 [facility] Care [address] [address] Attending Physician: Admtr, Ar8 Admitting Physician: Admtr, Ar8 Referring Physician: Admtr, Ar8 Encounter Type: Triage Allergies, Adverse Reactions, Alerts No Known Allergies Immunizations Given and Recorded Vaccine Date Status Refusal Reason SARS-CoV-2 mRNA ([id number]) vax 06/04/22 Given influenza virus vaccine, inactivated 11/21/21 Give n influenza virus vaccine, inactivated 06/30/19 Give n influenza virus vaccine, inactivated 11/12/18 Give n influenza virus vaccine, inactivated 1 07/24/17 Gi flaquita influenza virus vaccine, inactivated 2 07/24/16 Gi flaquita influenza virus vaccine, inactivated 10/12/15 Juvenal rded influenza virus vaccine, inactivated 10/16/09 Juvenal rded tetanus/diphtheria/pertussis, acel(Tdap) 11/08/13 Recorded Hepatitis B Vaccine (old term) 08/11/07 Given Hepatitis B Vaccine (old term) 12/16/06 Given Hepatitis B Vaccine (old term) 11/11/06 Given Hepatitis A Vaccine (oldterm) 08/11/07 Given Hepatitis A Vaccine (oldterm) 11/11/06 Given 1Result Comment: [07/24/2017] [facility]# [id number] 2Result Comment: [07/24/2016] SEQIRUS Medications albuterol 0.083% inhalation solution See Instructions, USE 1 VIAL VIA NEBULIZER EVERY 4-6 HOURS NEEDED FOR WHEEZING, # 100 each, 6 Refills, Maintenance, 02/22/24 9:41:00 AM EDT, [facility] #[id number], 170, cm, 09/17/23 14:13:00 EST, Height Start Date: 02/22/24 Status: Ordered Quantity: 100.0 Unit: each Repeat number: 7 amitriptyline 100 mg oral tablet 1 tablet = 100 mg, By Mouth, Daily at bedtime, # 90 tablet, 1 Refills, Maintenance, 04/04/24 3:19:00 PM EDT, Tablet, [facility] #[id number], Partial fill upon patient request if the prescription is for a schedule II opioid drug., 170, cm, 09/17/23 14:13:00 EST, Height Start Date: 04/04/24 Status: Ordered Quantity: 90.0 Unit: tablet Repeat number: 2 amLODIPine 10 mg oral tablet 1 tablet, By Mouth, Daily, # 90 tablet, 1 Refills, Maintenance, 09/17/23 2:31:00 PM EST, [facility] #[id number], 170, cm, 09/17/23 14:13:00 EST, Height Start Date: 09/17/23 Stop Date: 03/15/24 Status: Ordered Quantity: 90.0 Unit: tablet Repeat number: 2 ARIPiprazole 5 mg oral tablet 5 mg, 1, tablet, By Mouth, 2 times a day, # 180 tablet, Refills 1, Tot. Refills 1, Maintenance, 04/04/24 3:18:00 PM EDT, Route to Pharmacy Electronically, [facility] #[id number], Partial fill uponpatient request if the prescription is for a schedule II opioid drug., 170, cm, 09/17/23 14:13:00 EST, Height Start Date: 04/04/24 Status: Ordered Quantity: 180.0 Unit: tablet Repeat number: 2 blood pressure monitor blood pressure monitor, See Instructions, # 1 each, Refills 0, Tot. Refills 0, Maintenance, use to check blood pressure, 06/03/24 8:31:00 AM EDT, Supply, 172, cm, 05/29/24 17:45:00 EDT, Height, 113.3,kg, 05/29/24 14:16:00 EDT, Dry Weight Start Date: 06/03/24 Status: Ordered Quantity: 1.0 Unit: each Repeat number: 1 clonazePAM 0.5 mg oral tablet 1 tablet = 0.5 mg, By Mouth, Daily, PRN Anxiety, # 30 tablet, 3 Refills, Maintenance, 05/24/24 3:12:00 PM EDT, [facility] #[id number], Partial fill upon patient request if the prescription is fora schedule II opioid drug., 170, cm, 09/17/23 14:13:00 EST, Height Start Date: 05/24/24 Status: Ordered Quantity: 30.0 Unit: tablet Repeat number: 4 diclofenac 1% topical gel = 2 Gm, Topically, 4 times a day, # 100 Gm, 1 Refills, Maintenance, 12/10/22 10:22:00 AM EST, [facility] #[id number], Partial fill upon patient request if the prescription is for a schedule II opioid drug., 170, cm, 12/10/22 9:56:00 EST, Height Start Date: 12/10/22 Status: Ordered Quantity: 100.0 Unit: g Repeat number: 2 duloxetine 30 mg oral enteric coated capsule 1 capsule = 30 mg, By Mouth, 2 times a day, # 180 capsule, 1 Refills, Maintenance, 07/03/24 3:18:00 PM EDT, [facility] #[id number], Partial fill upon patient request if the prescription is for a schedule II opioid drug., 170, cm, 09/17/23 14:13:00 EST, Height Start Date: 07/03/24 Stop Date: 12/30/24 Status: Ordered Quantity: 180.0 Unit: capsule Repeat number: 2 Flonase 50 mcg/inh nasal spray 1 sprays, Nares, Both, 2 times a day, # 16 Gm, 4 Refills, Maintenance, 09/09/22 5:05:00 PM EST, [facility] #[id number], Partial fill upon patient request if the prescription is for a schedule II opioid drug., 1 sprays Nares, Both 2 times a day,x30 days, 170, cm, 09/09/22 16:19:00 EST, Height Start Date: 09/09/22 Stop Date: 02/06/23 Status: Ordered Quantity: 16.0 Unit: g Repeat number: 5 hydrOXYzine hydrochloride 25 mg oral tablet 1 tablet = 25 mg, By Mouth, 4 times a day, PRN for anxiety, # 120 tablet, 3 Refills, Maintenance, 05/24/24 3:14:00 PM EDT, Tablet, [facility] #[id number], Partial fill upon patient request if theprescription is for a schedule II opioid drug., 170, cm, 09/17/23 14:13:00 EST, Height Start Date: 05/24/24 Status: Ordered Quantity: 120.0 Unit: tablet Repeat number: 4 Lyrica 75 mg oral capsule 1 capsule = 75 mg, By Mouth, Daily, # 90 capsule, 1 Refills, Maintenance, 02/22/24 1:48:00 PM EDT, Capsule, [facility] #[id number], Partial fill upon patient request if the prescription is for a schedule II opioid drug., 170, cm, 09/17/23 14:13:00 EST, Height Start Date: 02/22/24 Stop Date: 08/20/24 Status: Ordered Quantity: 90.0 Unit: capsule Repeat number: 2 Nebulizer/Compressor See Instructions, # 1 each, Refills 0, Tot. Refills 0, Maintenance, Nebulizer supplies, 12/27/18 5:57:00 PM EDT, Compound Start Date: 12/27/18 Status: Ordered Quantity: 1.0 Unit: each Repeat number: 1 Indication: Unspecified asthma, uncomplicated pantoprazole 40 mg oral delayed release tablet 1 tablet = 40 mg, By Mouth, Daily, 0 Refills, Maintenance, 12/10/22 10:03:00 AM EST Start Date: 12/10/22 Status: Ordered Repeat number: 1 pravastatin 10 mg oral tablet 1 tablet, By Mouth, Daily, # 90 tablet, 1 Refills, Maintenance, 02/26/24 3:31:00 PM EDT, [facility] #[id number], 170, cm, 09/17/23 14:13:00 EST, Height Start Date: 02/26/24 Status: Ordered Quantity: 90.0 Unit: tablet Repeat number: 1 ProAir HFA 90 mcg/inh inhalation aerosol with adapter 2, puffs, Inhalation, Every 6 hours, NO ADDTIONAL REFILLS UNTIL SEEN BY PCP- PLEASE SCHEDULE APPT., # 1 each, Refills 6, Tot. Refills 6, Maintenance, 02/18/24 10:49:00 AM EDT, Inhaler, Route to Pharmacy Electronically, [id number], [facility] #[id number], 170, cm, 09/17/23 14:13:00 EST, Height Start Date: 02/18/24 Stop Date: 09/15/24 Status: Ordered Quantity: 1.0 Unit: each Repeat number: 7 Shingrix intramuscular injection = 0.5 mL, Intramuscular, Once, repeat dose in 2 to 6 months, # 2 each, 0 Refills, Soft Stop, :46:00 PM EDT, Pow[facility], Partial fill upon patient request if the prescription is for a schedule II opioid drug. Start Date: 03/13/23 Status: Ordered Quantity: 2.0 Unit: each Repeat number: 1 Indication: Encounter for general adult medical examination without abnormal findings traMADol 50 mg oral tablet 1 tablet = 50 mg, By Mouth, Every 8 hours, # 84, 0 Refills, Maintenance, 02/22/24 10:11:00 AM EDT, Partial fill upon patient request if the prescription is for a schedule II opioid drug. Start Date: 02/22/24 Status: Ordered Quantity: 84.0 Unit: Repeat number: 1 Problem List Condition Confirmation Course Effective Dates Status H ealth Status Informant Asthma Confirmed Active Obesity, Class III, BMI 40-49.9 (morbid obesity) Confirmed Active Chronic pain syndrome Confirmed Active Fibromyalgia Confirmed 05/22/08 Active BETO - Generalized anxiety disorder Confirmed Active Hypertension Confirmed Active Hyperthyroidism Confirmed Active Insomnia Confirmed Active Knee pain, bilateral Confirmed Active Low back pain Confirmed Active DJD (degenerative joint disease), lumbosacral Confirmed Active Mild intermittent asthma Confirmed Active Bipolar disorder Confirmed Active Nocturnal Sleep-Related Eating Disorder Confirmed Active SI (sacroiliac) joint dysfunction Confirmed Active Severe obesity (BMI 35.0-39.9) with comorbidity Confirmed Active Subluxation of peroneal tendon of left foot Confirmed Active Vitamin d deficiency Confirmed Active Social History Social History Type Response Smoking Status Never smoker entered on: 12/25/15 Sex Sex Representation Female (finding) Laboratory * Event Display: Non BH Lab Results Authored Date: * Event Display: Non BH Lab Results Authored Date: * Event Display: Non BH Lab Results Authored Date: * Event Display: Non BH Lab Results Authored Date: Patient Care team information Care Team Personnel Name: Darvin Choi MD, Ana Position: [facility] Physician - Primary Care Member Role: PCP Address: [address] [place] [address] [place] [address] Telecom: Name: Orin White [place] Position: [facility] Office Staff Member Role: Primary Care Nurse Care Team Related Persons Name: CUCO SANZ Name: QUENTIN VORA Name: KEHINDE VORA Insurance Providers Guarantor name: [facility] Health Plan Information #: 1 Payer: [facility] CARE ALLIANCE/ONE CARE Member Number: NA Policy Number: NA Group Number: NA
--- OUTSIDE RECORDS SUMMARY | 2024-10-31 16:20 | XMS_ITS | Clinical Summary ---
Author Organization [facility] it Address [address] [place] [address] Care Team Providers Care [employer] Rep Name Role Phone Ana Funk MD Primary Care Provider Social History Tobacco Use Types Packs/Day Years Used Date Smoking Tobacco: Never Assessed Sex and Gender Information Value Date Recorded Sex Assigned at Not on file Gender Identity Not on file Sexual Orientation Not on file Plan of Treatment Health Maintenance Due Date Last Done Comments Breast Cancer Screening 1964 Pneumococcal Vaccine: Pediatrics (0 to 5 Years) and At-Risk Patients (6 to 64 Years) (1 of 2 - PCV) 1970 DTaP,Tdap,and Td Vaccines (1 - Tdap) 1983 Cervical Cancer Screening: P ap Smear 1985 Zoster Vaccines (1 of 2) 2014 Cholesterol Screening (Lipid Panel) 09/02/2022 Colorectal Cancer Screening: Colonoscopy 09/02/2022 Depression Screening 09/02/2022 HIV Screening 09/02/2022 Hepatitis C Screening 09/02/2022 Social Influencers of Health Screening 09/02/2022 COVID-19 Vaccine (1 - 2023-2 5 season) 2024 Influenza Vaccine (#1) 2024 0, 10/16/2009 RSV Immunization Patients 60 + Years Old (1 - Risk 60-74 years 1-dose series) 2024 HIB Vaccines Aged Out No longer eligi ble based on patient's age to complete this topic HPV Vaccines Aged Out No longer eligi ble based on patient's age to complete this topic Hepatitis A Vaccines Aged Out No long er eligible based on patient's age to complete this topic Hepatitis B Vaccines Aged Out No long er eligible based on patient's age to complete this topic IPV Vaccines Aged Out No longer eligi ble based on patient's age to complete this topic MMR Vaccines Aged Out No longer eligi ble based on patient's age to complete this topic Meningococcal ACWY Vaccine Aged Out N o longer eligible based on patient's age to complete this topic RSV Immunization Patients Under 20 months Aged Out No longer eligible b ased on patient's age to complete this topic Varicella Vaccines Aged Out No longer eligible based on patient's age to complete this topic Care Teams Home [employer] Rep Relationship Specialty Start Date End Date Ana Funk MD [address] [place], [place] PCP - General Internal Medicine 10/21/18
--- OUTSIDE RECORDS SUMMARY | 2024-10-31 16:20 | XMS_ITS | Continuity of Care Document ---
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 Name Role Phone Ana Funk MD Primary Care Physician Encounter [facility] Date(s): 06/10/24 - 10/08/24 [facility] [place] [address] [place], [place] [address] Attending Physician: Ana Funk MD Encounter Type: Pre-OutPatient One Time Allergies, Adverse Reactions, Alerts No Known Allergies Immunizations Given and Recorded Vaccine Date Status Refusal Reason SARS-CoV-2 mRNA (wevcymw-hijv-qpmou) vax 06/04/22 Given influenza virus vaccine, inactivated [...] Given 1Result Comment: [07/24/2017] [facility]# [id number] 2Result Comment: [07/24/2016] SEQIRUS Medications albuterol 0.083% inhalation solution See Instructions, USE 1 VIAL VIA NEBULIZER EVERY 4-6 HOURS NEEDED FOR WHEEZING, # 100 each, 6 Refills, Maintenance, 02/22/24 9:41:00 AM EDT, [facility] #[id number], 170, cm, 09/17/23 14:13:00 EST, Height Start Date: 02/22/24 Status: Ordered Quantity: 100.0 Unit: each Repeat number: 7 amitriptyline 100 mg oral tablet 1 tablet = 100 mg, By Mouth, Daily at bedtime, # 90 tablet, 1 Refills, Maintenance, 04/04/24 3:19:00 PM EDT, Tablet, [facility] #[id number], Partial fill upon patient request if the prescription is for a schedule II opioid drug., 170, cm, 09/17/23 14:13:00 EST, Height Start Date: 04/04/24 Status: Ordered Quantity: 90.0 Unit: tablet Repeat number: 2 amLODIPine 10 mg oral tablet 1 tablet, By Mouth, Daily, # 90 tablet, 1 Refills, Maintenance, 09/17/23 2:31:00 PM EST, [facility] #[id number], 170, cm, 09/17/23 14:13:00 EST, Height Start Date: 09/17/23 Stop Date: 03/15/24 Status: Ordered Quantity: 90.0 Unit: tablet Repeat number: 2 ARIPiprazole 5 mg oral tablet 5 mg, 1, tablet, By Mouth, 2 times a day, # 180 tablet, Refills 1, Tot. Refills 1, Maintenance, 04/04/24 3:18:00 PM EDT, Route to Pharmacy Electronically, [facility] #[id number], Partial fill uponpatient request if the prescription [...] 3 Refills, Maintenance, 05/24/24 3:12:00 PM EDT, [facility] #[id number], Partial fill upon patient request if the prescription is fora schedule II opioid drug., 170, cm, 09/17/23 14:13:00 EST, Height Start Date: 05/24/24 Status: Ordered Quantity: 30.0 Unit: tablet Repeat number: 4 diclofenac 1% topical gel = 2 Gm, Topically, 4 times a day, # 100 Gm, 1 Refills, Maintenance, 12/10/22 10:22:00 AM EST, [facility] #[id number], Partial fill upon patient request if the prescription is for a schedule II opioid drug., 170, cm, 12/10/22 9:56:00 EST, Height Start Date: 12/10/22 Status: Ordered Quantity: 100.0 Unit: g Repeat number: 2 duloxetine 30 mg oral enteric coated capsule 1 capsule = 30 mg, By Mouth, 2 times a day, # 180 capsule, 1 Refills, Maintenance, 07/03/24 3:18:00 PM EDT, [facility] #[id number], Partial fill upon patient request if the prescription is for a schedule II opioid drug., 170, cm, 09/17/23 14:13:00 EST, Height Start Date: 07/03/24 Stop Date: 12/30/24 Status: Ordered Quantity: 180.0 Unit: capsule Repeat number: 2 Flonase 50 mcg/inh nasal spray 1 sprays, Nares, Both, 2 times a day, # 16 Gm, 4 Refills, Maintenance, 09/09/22 5:05:00 PM EST, [facility] #[id number], Partial fill upon patient request if the [...] Refills, Maintenance, 05/24/24 3:14:00 PM EDT, Tablet, [facility] #[id number], Partial fill upon patient request if theprescription is for a schedule II opioid drug., 170, cm, 09/17/23 14:13:00 EST, Height Start Date: 05/24/24 Status: Ordered Quantity: 120.0 Unit: tablet Repeat number: 4 Lyrica 75 mg oral capsule 1 capsule = 75 mg, By Mouth, Daily, # 90 capsule, 1 Refills, Maintenance, 02/22/24 1:48:00 PM EDT, Capsule, [facility] #[id number], Partial fill upon patient request if the [...] 1 Refills, Maintenance, 02/26/24 3:31:00 PM EDT, [facility] #[id number], 170, cm, 09/17/23 14:13:00 EST, Height Start Date: 02/26/24 Status: Ordered Quantity: 90.0 Unit: tablet Repeat number: 1 ProAir HFA 90 mcg/inh inhalation aerosol with adapter 2, puffs, Inhalation, Every 6 hours, NO ADDTIONAL REFILLS UNTIL SEEN BY PCP- PLEASE SCHEDULE APPT., # 1 each, Refills 6, Tot. Refills 6, Maintenance, 02/18/24 10:49:00 AM EDT, Inhaler, Route to Pharmacy Electronically, [id number], [facility] #[id number], 170, cm, 09/17/23 14:13:00 EST, Height Start [...] on: 12/25/15 Sex Sex Representation Female (finding) Patient Care team information Care Team Personnel Name: Ana Funk MD Position: [facility] Physician - Primary Care Member Role: PCP Address: [address] [place] [address] [place] [address] Telecom: Name: Orin White [place] Position: [facility] Office Staff Member Role: Primary Care Nurse Care Team Related Persons Name: CUCO SANZ Name: QUENTIN VORA Name: KEHINDE VORA Insurance Providers Guarantor name: [facility] Health Plan Information #: 1 Payer: [facility] CARE ALLIANCE/ONE CARE Member Number: [id number] Policy Number: NA Group Number: [facility] [id number] Plan Information #: 2 Payer: [facility]/ONE CARE Member Number: [id number] Policy Number: NA Group Number: NA
== END 2024-10-31 11:35 | disposition home or self-care (01) ==
LOC: HO.HBS 11:28
PROVIDERS: PCP Internal Medicine; Visit Provider Physician Assistant Surgical
DX: E66.9 Obesity, unspecified (principal); Z98.84 Bariatric surgery status
CPT/HCPCS: 98016

== ENCOUNTER 2025-01-30 11:12 | Outpatient (AMB) | payer OTHER, SELFPAY ==
--- NOTE | 2025-01-30 11:05 | MHC.OFFVISWM ---
VS Expanded 01/30/25 11:08 Height 5 ft 8 in Weight 237 lb BMI 36.0 Intake Visit Reasons: TELEPHONE PO LSG 10/09/22 Allergies No Known Allergies Allergy (Verified 11/20/22 16:10) Medication List - Last Reconciled 01/30/25 by MICK Hopkins albuterol sulfate 2.5 mg inhalation Q4H PRN albuterol sulfate 90 mcg/actuation 2 puffs inhalation Q4H PRN amlodipine 10 mg PO DAILY aripiprazole 2 mg PO DAILY fluticasone propionate 50 mcg/actuation 1 spray intranasal BID PRN hydroxyzine HCl 25 mg PO BID PRN uypbdxlgdwcj-cnu-weuz-FA-vit K 45 mg iron- 800 mcg-120 mcg (Bariatric Multivitamins) caps PO pravastatin 10 mg PO DAILY simethicone (Gas Relief (simethicone)) 80 mg PO BID-QID PRN tramadol 50 mg PO DAILY PRN HPI Comments Details: This?is a?59?yo F who is s/p LSG 10/09/2022. Presents for 2 year 3 month post op visit. Weight at last visit on 10/31/2024 was 247 pounds with a BMI of 37.6, weight today is 237 pounds, representing a 10 pound weight loss with a BMI today of 36.? No complaints of nausea, emesis, abdominal pain or reflux, or constipation. Reports some gas pain, not helped by simethicone or Tums. Unsure timing of when it starts related to eating. She gets diffuse bloating which is painful. Present meal plan includes: -given at last visit 11am-1pm 2 scoops Premier 2-4pm 1 scoop Isopure 5pm 6f/6f 7-9pm 1 scoop Isopure Exercise routine includes: likes to walk several days a week PFSH Medical History Anxiety Arthritis Asthma Depression DJD (degenerative joint disease) Hypertension Morbid obesity Surgical History Hx of tubal ligation Family History Mother No problems noted. Father No problems noted. Sister No problems noted. Sister No problems noted. Sister No problems noted. Sister No problems noted. Sister Asthma Son No problems noted. Son No problems noted. Son No problems noted. Son No problems noted. Social History Housing Other:: mobile home Are you a primary inspector health care facilities to a significant other at home: No Do you presently have visiting nurse or other home services: Yes ([employer]) Alcohol intake: never Patient Tobacco Use Status: Never used Tobacco service: No Current occupational status: disabled Assessment & Plan Assessment & Plan (1) Obesity: Code(s): E66.9 - Obesity, unspecified Category: Medical (2) S/P laparoscopic sleeve gastrectomy: Code(s): Z98.84 - Bariatric surgery status Category: Surgical Plan Pt to continue on meal plan as she is doing well with weight loss on it. She will start to track her intake and episodes of pain, to determine how long after eating bloating occurs and if related to any specific foods. In review of previous imaging she had GBW thickening on preop US so will repeat GB imaging to determine if this may be possibly contributing. RTC 3mo. Orders: Orders US abdomen comp w elastography Today R10.9 - Unspecified abdominal pain, Z98.84 - Bariatric surgery status
[2025-01-30 11:08] VITALS: BMI 36.0
--- OUTSIDE RECORDS SUMMARY | 2025-01-30 13:30 | XMS_ITS | Clinical Summary ---
Author Organization [facility] it Address [address] [place] [address] Care Team Providers Care Core Assembly Supervisor Name Role Phone Ana Funk MD Primary Care Provider Social History Tobacco Use Types Packs/Day Years Used Date Smoking Tobacco: Never Assessed Comments Unknown Sex and Gender Information Value Date Recorded Sex Assigned at Not on file Legal Sex Female 11:17 AM EST Gender Identity Not on file Sexual Orientation Not on file Plan of Treatment Health Maintenance Due Date Last Done Comments Breast Cancer Screening 1964 DTaP,Tdap,and Td Vaccines (1 - Tdap) 1983 Cervical Cancer Screening: P ap Smear 1985 Pneumococcal Vaccine: 50+ Years (1 of 1 - PCV) 2014 Zoster Vaccines (1 of 2) 2014 COVID-19 Vaccine ( - 2023-2 5 season) 2024 Influenza Vaccine (Season Ended) 2025 10/16/2009, 10/16/2009 RSV Immunization Adult Patients (1 - 1-dose 75+ series) 2039 HIB Vaccines Aged Out No longer eligi [...] patient's age to complete this topic Meningococcal B Vaccine Aged Out No l onger eligible based on patient's age to complete this topic Pneumococcal Vaccine: Pediatrics (0 to 5 Years) and At-Risk Patients (6 to 64 Years) Aged Out No longer eligible b ased on patient's age to complete this topic RSV Immunization Patients Under 20 months Aged Out No longer eligible b ased on patient's age to complete this topic Varicella Vaccines Aged Out No longer eligible based on patient's age to complete this topic Care Teams Core Assembly Supervisor Relationship Specialty Start Date End Date Ana Funk MD [address] [place], [place] PCP - General Internal Medicine 10/21/18
== END 2025-01-30 11:28 | disposition home or self-care (01) ==
LOC: HO.HBS 11:12
PROVIDERS: PCP Internal Medicine; Visit Provider Physician Assistant Surgical
DX: E66.9 Obesity, unspecified (principal); E66.812 Obesity, class 2; Z68.36 Body mass index [BMI] 36.0-36.9, adult; Z98.84 Bariatric surgery status
CPT/HCPCS: 99214; G2211

== ENCOUNTER → 2025-01-30 11:12 | Outpatient (BNVA) | payer OTHER, SELFPAY | PROVIDERS: PCP Internal Medicine; Visit Provider Physician Assistant Surgical ==

== ENCOUNTER 2025-04-24 10:02 | Outpatient (REF) | payer OTHER, SELFPAY ==
--- NOTE | ~2025-04-24 | US_ITS ---
EXAMINATION: US ABDOMEN COMPLETE WITH LIVER ELASTOGRAPHY HISTORY: Z98.84 - Bariatric surgery status TECHNIQUE: Real-time grayscale ultrasound imaging of the abdomen was performed and images were reviewed. COMPARISON: There are no prior studies available for comparison. FINDINGS: Liver: The right lobe of the liver measures 15.4 cm in size. The left lobe of the liver measures 10.5 cm in size. The liver demonstrates increased echotexture, consistent with steatosis. No focal mass or intrahepatic biliary ductal dilatation is identified. There is normal hepatopedal flow in the portal vein. Ultrasound elastography of the liver was performed with 10 separate measurements of the liver parenchyma with the patient in the supine position. Measurements were obtained approximately 2 cm below Azar's capsule and perpendicular to the capsule. The median shear wave velocity is 1.91 m/s (previously 2.07 m/s). The interquartile range/median (IQR/median) is 0.03. Gallbladder and biliary tree: The gallbladder is unremarkable, without evidence of calculi, wall thickening, or pericholecystic fluid. There is no sonographic Norman sign. The common bile duct is normal in caliber measuring 5 mm. Kidneys: The right kidney measures 11.1 cm in length. The left kidney measures 10.8 cm in length. The kidneys are unremarkable, without evidence of masses, hydronephrosis, or calculi. Pancreas: The pancreas is not well visualized. Spleen: The spleen is normal in size and contour, measuring 8.9 cm in length. Abdominal aorta and inferior vena cava: The visualized portions of the abdominal aorta and inferior vena cava are normal in caliber. There is no free fluid in the abdomen. US/US abdomen comp w elastography IMPRESSION: Hepatic steatosis. The median shear wave velocity in the liver is 1.91 m/s, corresponding to a median liver stiffness of 11.20 kPa. The IQR/median value is 0.03. This is indicative of a quality data set. Findings are indicative of a high elastography value suggestive of compensated advanced chronic liver disease. REFERENCE: Society of Radiologists in Ultrasound Liver Stiffness Thresholds (2019): LIVER STIFFNESS THRESHOLDS: *Shear wave velocity less than 1.3 m/s (Liver Stiffness equal or less than 5 kPa): High probability of being normal. *Shear wave velocity less than 1.7 m/s (Liver Stiffness less than 9 kPa): In the absence of other known clinical signs, rules out compensated advanced chronic liver disease. *Shear wave velocity between 1.7-2.1 m/s (Liver Stiffness 9-13 kPa): Suggestive of compensated advanced chronic liver disease but need further test for confirmation. *Shear wave velocity between 2.1-2.4 m/s (Liver Stiffness 13-17 kPa): Rules in compensated advanced chronic liver disease. *Shear wave velocity greater than 2.4 m/s (Liver Stiffness over 17 kPa): Suggestive of clinically significant portal hypertension. QUALITY OF DATA SET: *IQR/Median value equal or less than 0.15 implies a quality data set. *IQR/Median value over 0.15 implies a poor quality data set. SIGNIFICANT CHANGE FROM PRIOR EXAM: Significant change if liver stiffness measurement is 10% or greater from prior exam. OTHER CONSIDERATIONS: The stage of liver fibrosis may be overestimated in the setting of acute hepatitis, liver inflammation, elevated liver function tests, hepatic vascular congestion, obstructive cholestasis, non-fasting state, and infiltrative diseases such as amyloidosis and lymphoma. In some patients with NAFLD, the liver stiffness thresholds for compensated advanced chronic liver disease may be lower. In causes other than viral hepatitis and NAFLD, liver stiffness thresholds are not well established. Electronically signed by: Vineet Khan MD 04/24/2025 12:15 PM EDT
--- OUTSIDE RECORDS SUMMARY | 2025-04-24 10:48 | XMS_ITS | Clinical Summary ---
Author Organization [facility] it Address [address] [place] [address] Care Team Providers Care Dictaphone Typist Name Role Phone Ana Funk MD Primary [...] Vaccine ( - 2023-2 5 season) 2024 Depression Screening 10/05/2024 Influenza Vaccine (#1) 2025 0, 10/16/2009 RSV Immunization Adult Patients (1 - [...] age to complete this topic Care Teams Dictaphone Typist Relationship Specialty Start Date End Date Ana Funk MD [address] [place] PCP - General Internal Medicine 10/21/18
== END 2025-04-24 10:03 | disposition home or self-care (01) ==
LOC: HO.US 10:02
PROVIDERS: PCP Internal Medicine; Visit Provider Physician Assistant Surgical
DX: R10.9 Unspecified abdominal pain (principal); Z98.84 Bariatric surgery status
CPT/HCPCS: 76700; 76981

== ENCOUNTER → 2025-04-24 10:03 | Outpatient (BNV) | payer OTHER, SELFPAY | PROVIDERS: PCP Internal Medicine; Visit Provider Radiology Diagnostic Radiology | DX: K76.0 Fatty (change of) liver, not elsewhere classified (principal) | CPT/HCPCS: 76700 ==

== ENCOUNTER 2025-05-09 11:44 | Outpatient (AMB) | payer OTHER, SELFPAY ==
--- NOTE | 2025-05-09 11:32 | A.OFFVIS_ITS ---
VS Expanded 05/09/25 11:48 Height 5 ft 8 in Weight 240 lb BMI 36.5 Intake Visit Reasons: TELEPHONE PO LSG 10/09/22 Allergies No Known Allergies Allergy (Verified 11/20/22 16:10) Medication List - Last Reconciled 05/09/25 by MICK Hopkins albuterol sulfate 2.5 mg inhalation Q4H PRN albuterol sulfate 90 mcg/actuation 2 puffs inhalation Q4H PRN amlodipine 10 mg PO DAILY Held on 10/10/22. Instructions: Resume on 10/11/22. Don't take it if blood pressure is less than 120/[address] Cancino aripiprazole 2 mg PO DAILY fluticasone propionate 50 mcg/actuation 1 spray intranasal BID PRN hydroxyzine HCl 25 mg PO BID PRN [id number]-FA-vit K 45 mg iron- 800 mcg-120 mcg (Bariatric Multivitamins) caps PO pravastatin 10 mg PO DAILY simethicone (Gas Relief (simethicone)) 80 mg PO BID-QID PRN tramadol 50 mg PO DAILY PRN Held on 10/10/22. Instructions: until discussed with Dr Cortés HPI Comments Details: This is a 59 yo F who is s/p LSG 10/09/2022. Presents for 2 year 7 month post op visit. Weight at last visit on 01/30/2025 was 237 pounds with a BMI of 36, weight today is 240 pounds, representing a 3 pound weight gain with a BMI today of 36.5. No complaints of nausea, emesis, reflux or constipation. Continues to have some gas pain. Present meal plan includes: -given at last visit 11am-1pm 2 scoops Premier 2-4pm 1 scoop Isopure 5pm 6f/6f 7-9pm 1 scoop Isopure taking MVI Exercise routine includes: likes to walk several days a week- has been walking more right now my fibromyalgia is really activated [facility] Medical History Anxiety Arthritis Asthma Depression DJD (degenerative joint disease) Hypertension Morbid obesity Surgical History Hx of tubal ligation Family History Mother No problems noted. Father No problems noted. Sister No problems noted. Sister No problems noted. Sister No problems noted. Sister No problems noted. Sister Asthma Son No problems noted. Son No problems noted. Son No problems noted. Son No problems noted. Social History Housing Other:: mobile home Are you a primary managed care manager to a significant other at home: No Do you presently have visiting nurse or other home services: Yes ([employer]) Alcohol intake: never Patient Tobacco Use Status: Never used Tobacco service: No Current occupational status: disabled Telehealth Telehealth Telehealth Platform: Telephone Location of provider rendering services: practice address Location of patient: address on file Patient Identification confirmed using: Name, : Yes Telehealth method: voice only Patient verbally consented to treatment: Yes Patient verbally consented to billing insurance company: Yes Patient informed of any privacy concerns related to visit: Yes Minutes spent on Phone/Video with Pt.: 15 Results Reviewed Results Reviewed: Liver elastography did not show concerning gallbladder findings Assessment & Plan Assessment & Plan (1) S/P laparoscopic sleeve gastrectomy: Code(s): Z98.84 - Bariatric surgery status Category: Surgical (2) Obesity: Code(s): E66.9 - Obesity, unspecified Category: Medical Plan Pt is interested in starting GLP1. Reviewed contraindications, discussed dosing. Discussed need for adequate protein intake while on GLP1s as well as frequent communication with our office. Pt will check in with me weekly and is aware that subsequent Rx will be dependent on frequent communication. Rx for Zepbound sent. New meal plan: 11am-1pm 2 scoops Premier 2-4pm cottage cheese 5pm 4f/4f 7-9pm 1 scoop Premier Will also mail cookbook. RTC in early October for annual.
[2025-05-09 11:48] VITALS: BMI 36.5
--- OUTSIDE RECORDS SUMMARY | 2025-05-09 12:34 | XMS_ITS | Clinical Summary ---
Author Organization [facility] it Address [address] [place] [address] Care Team Providers Care Internal Recruiter Name Role Phone Ana Funk MD Primary [...] age to complete this topic Care Teams Internal Recruiter Relationship Specialty Start Date End Date Ana Funk MD [address] [place] PCP - General Internal Medicine 10/21/18
== END 2025-05-09 12:05 | disposition home or self-care (01) ==
LOC: HO.HBS 11:44
PROVIDERS: PCP Internal Medicine; Visit Provider Physician Assistant Surgical
DX: E66.9 Obesity, unspecified (principal); Z68.36 Body mass index [BMI] 36.0-36.9, adult; Z98.84 Bariatric surgery status; Z90.3 Acquired absence of stomach [part of]
CPT/HCPCS: 99213; G2211